=== PATIENT | male | born 1960 | race Caucasian/White ===

== ENCOUNTER 2020-05-04 05:14 | Inpatient (IN) | payer MEDICAID, OTHER ==
[~2020-05-04] VITALS: Ht 167.6 cm; Wt 72.3 kg
[2020-05-04] MEDS ORDERED: ACETAMINOPHEN 650MG SUPP PR STA (06:43)
[2020-05-04] MEDS ORDERED: CEFTRIAXONE 1 G PREMIX 50 ML IV ONE (06:45)
[2020-05-04 07:06] LABS: BASOPHILS % 0.2 % (0.0-2.0); EOSINOPHILS % 0.3 % (0.0-5.0); LYMPHOCYTES % 7.4 % (20.0-50.0); MEAN CORPUSCULAR HEMOGLOBIN 29.7 pg (28.0-32.0); MEAN PLATELET VOLUME 7.8 fl (7.4-10.4); MONOCYTES % 6.1 % (2.0-8.0); PLATELET 402 x1000/uL (130-400); RED BLOOD CELL COUNT 5.06 mill/uL (4.7-6.1)
[2020-05-04 07:11] LABS: CHLORIDE 93 mEq/L (98-107)
[2020-05-04 08:01] LABS: PROTHROMBIN TIME 10.6 sec (9.6-11.0)
[2020-05-04] MEDS ORDERED: SODIUM CHLORIDE 0.9% 1,000 ML IV ONE (10:45)
[2020-05-04] MEDS ORDERED: CLONIDINE 0.1MG TABLET PO PRN (12:30)
[2020-05-04] MEDS ORDERED: DOCUSATE SODIUM 100MG CAPSULE PO PRN (12:30)
[2020-05-04] MEDS ORDERED: DEXTROSE 50% WATER 50ML SYRINGE IV PRN (12:30)
[2020-05-04] MEDS ORDERED: ZOLPIDEM TARTRATE 5MG TABLET PO PRN (12:30)
[2020-05-04] MEDS ORDERED: GUAIFENESIN 200MG/10ML SUGAR FREE UDC PO PRN (12:30)
[2020-05-04] MEDS ORDERED: ACETAMINOPHEN 325MG TABLET PO PRN ×2 (12:30)
[2020-05-04] MEDS ORDERED: MAGNESIUM/ALUMINUM HYDROXIDE/SIMETHICONE 30ML UDC PO PRN (12:30)
[2020-05-04] MEDS ORDERED: NITROGLYCERIN 0.4MG TABLET SL SL PRN (12:30)
[2020-05-04] MEDS ORDERED: ONDANSETRON HCL 4MG/2ML INJ IV PRN (12:30)
[2020-05-04] MEDS ORDERED: ALBUTEROL 6.7GM HFA INHALER ORI PRN (12:30)
[2020-05-04] MEDS ORDERED: KETOROLAC 15MG/ML VIAL IV PRN (12:30)
[2020-05-04] MEDS ORDERED: ENOXAPARIN 40MG/0.4ML SYR SUBCUT SCH (14:00)
[2020-05-04] MEDS: BLOOD SUGAR DIAGNOSTIC STRIP TEST SCH ×3 (14:29→21:00)
[2020-05-04 14:57] LABS: FOLIC ACID (FOLATE) SERUM 16.8 ng/mL (>5.38)
[2020-05-04] MEDS: INSULIN LISPRO 100 UNITS/ML SUBCUT SCH ×5 (14:59→23:01)
[2020-05-04] MEDS: AZITHROMYCIN 500 MG in DEXT 5% WATER 250 ML IV SCH (15:33)
[2020-05-04] MEDS: DEXAMETHASONE 10 MG/ML VIAL IV SCH (15:33)
[2020-05-04 16:11] LABS: CREATINE KINASE 37 IU/L (39-308)
[2020-05-04 16:13] LABS: CREATINE KINASE MB FRACTION < 1.0 ng/mL (0.5-3.6)
[2020-05-04] MEDS: DILTIAZEM HCL 60MG TABLET PO SCH (19:25)
[2020-05-04] MEDS ORDERED: INSULIN GLARGINE UD 100 UNITS/ML SYR SUBCUT SCH (22:00)
[2020-05-04] MEDS: FAMOTIDINE 20MG TABLET PO SCH (22:29)
[2020-05-04] MEDS: GUAIFENESIN/DM 600MG/30MG ER TAB 12HR PO SCH (22:29)
[2020-05-04 23:18] LABS: CREATINE KINASE 35 IU/L (39-308); CREATINE KINASE MB FRACTION < 1.0 ng/mL (0.5-3.6)
[2020-05-04] MEDS: ASCORBIC ACID 500 MG TABLET PO SCH (23:39)
[2020-05-05 06:43] LABS: CHLORIDE 98 mEq/L (98-107)
[2020-05-05 06:45] LABS: HEMATOCRIT. 40.5 % (42.0-52.0); HEMOGLOBIN. 14.1 g/dL (14.0-18.0); MEAN CORPUSCULAR VOLUME 86.1 fL (80.0-94.0); MEAN PLATELET VOLUME 7.5 fl (7.4-10.4); PLATELET 455 x1000/uL (130-400); RED CELL DISTRIBUTION WIDTH 12.8 % (11.6-14.6)
[2020-05-05 06:56] LABS: PHOSPHORUS 2.7 mg/dL (2.5-4.9)
[2020-05-05 07:50] LABS: PLATELET ESTIMATE NORMAL
[2020-05-05] MEDS: INSULIN LISPRO 100 UNITS/ML SUBCUT SCH ×8 (07:50→22:47)
[2020-05-05] MEDS ORDERED: CEFTRIAXONE 1 G PREMIX 50 ML IV SCH (09:00)
[2020-05-05] MEDS: BLOOD SUGAR DIAGNOSTIC STRIP TEST SCH ×4 (09:00→21:00)
[2020-05-05] MEDS: ENOXAPARIN 40MG/0.4ML SYR SUBCUT SCH (09:00)
[2020-05-05] MEDS: DILTIAZEM HCL 60MG TABLET PO SCH ×4 (12:00→23:53)
[2020-05-05] MEDS: DEXAMETHASONE 10 MG/ML VIAL IV SCH (12:02)
[2020-05-05] MEDS: ASPIRIN 325MG EC TABLET PO SCH (12:03)
[2020-05-05] MEDS: GUAIFENESIN/DM 600MG/30MG ER TAB 12HR PO SCH ×2 (12:03→21:43)
[2020-05-05] MEDS: FAMOTIDINE 20MG TABLET PO SCH ×2 (12:03→21:43)
[2020-05-05 12:28] VITALS: BP_SYST 135; BP_SYST 138; BP_DIAS 63
[2020-05-05] MEDS: ASCORBIC ACID 500 MG TABLET PO SCH ×2 (15:06→21:43)
[2020-05-05] MEDS: ZINC SULFATE 220 MG ( 50 ) CAPSULE PO SCH (15:06)
[2020-05-05] MEDS ORDERED: METF500S7 PO (15:14)
[2020-05-05 16:00] VITALS: BP 124/68
[2020-05-05] MEDS: ALBUTEROL 6.7GM HFA INHALER ORI SCH ×2 (18:11→21:43)
[2020-05-05] MEDS: AZITHROMYCIN 500 MG in DEXT 5% WATER 250 ML IV SCH (18:11)
[2020-05-05 20:00] VITALS: BP 102/42
[2020-05-05 23:41] VITALS: BP 114/55
[2020-05-05] MEDS: INSULIN GLARGINE UD 100 UNITS/ML SYR SUBCUT SCH (23:54)
[2020-05-06] MEDS: ALBUTEROL 6.7GM HFA INHALER ORI SCH ×4 (03:40→21:46)
[2020-05-06 04:00] VITALS: BP 109/49
[2020-05-06] MEDS: DILTIAZEM HCL 60MG TABLET PO SCH ×3 (05:10→18:21)
[2020-05-06] MEDS: BLOOD SUGAR DIAGNOSTIC STRIP TEST SCH ×4 (05:48→21:47)
[2020-05-06 08:00] VITALS: BP 116/72
[2020-05-06] MEDS: ASCORBIC ACID 500 MG TABLET PO SCH ×2 (08:41→21:47)
[2020-05-06] MEDS: ENOXAPARIN 40MG/0.4ML SYR SUBCUT SCH (08:41)
[2020-05-06] MEDS: ZINC SULFATE 220 MG ( 50 ) CAPSULE PO SCH (08:41)
[2020-05-06] MEDS: DEXAMETHASONE 10 MG/ML VIAL IV SCH (08:41)
[2020-05-06] MEDS: ASPIRIN 325MG EC TABLET PO SCH (08:41)
[2020-05-06] MEDS: FAMOTIDINE 20MG TABLET PO SCH ×2 (08:41→21:47)
[2020-05-06] MEDS: INSULIN LISPRO 100 UNITS/ML SUBCUT SCH ×7 (08:43→21:54)
[2020-05-06] MEDS: CEFTRIAXONE 1,000 MG in DEXTROSE 5% WATER 50 ML IV SCH (11:07)
[2020-05-06] MEDS: GUAIFENESIN/DM 600MG/30MG ER TAB 12HR PO SCH ×2 (11:07→21:47)
[2020-05-06] MEDS: AZITHROMYCIN 500 MG in DEXT 5% WATER 250 ML IV SCH (14:57)
[2020-05-06 16:00] VITALS: BP 120/50
[2020-05-06 20:00] VITALS: BP 139/82
[2020-05-06] MEDS: INSULIN GLARGINE UD 100 UNITS/ML SYR SUBCUT SCH (23:18)
[2020-05-07] VITALS: BP 125/59
[2020-05-07] MEDS: DILTIAZEM HCL 60MG TABLET PO SCH ×5 (01:00→23:17)
[2020-05-07] MEDS: ALBUTEROL 6.7GM HFA INHALER ORI SCH ×4 (03:51→20:24)
[2020-05-07 04:00] VITALS: BP 104/56
[2020-05-07] MEDS: INSULIN LISPRO 100 UNITS/ML SUBCUT SCH ×7 (07:02→20:23)
[2020-05-07] MEDS: BLOOD SUGAR DIAGNOSTIC STRIP TEST SCH ×4 (07:02→20:23)
[2020-05-07 08:00] VITALS: BP 123/61
[2020-05-07] MEDS: ENOXAPARIN 40MG/0.4ML SYR SUBCUT SCH (08:54)
[2020-05-07] MEDS: DEXAMETHASONE 10 MG/ML VIAL IV SCH (08:54)
[2020-05-07] MEDS: ZINC SULFATE 220 MG ( 50 ) CAPSULE PO SCH (08:54)
[2020-05-07] MEDS: ASCORBIC ACID 500 MG TABLET PO SCH ×2 (08:54→20:22)
[2020-05-07] MEDS: ASPIRIN 325MG EC TABLET PO SCH (08:54)
[2020-05-07] MEDS: FAMOTIDINE 20MG TABLET PO SCH ×2 (08:54→20:21)
[2020-05-07] MEDS: CEFTRIAXONE 1,000 MG in DEXTROSE 5% WATER 50 ML IV SCH (09:00)
[2020-05-07] MEDS: GUAIFENESIN/DM 600MG/30MG ER TAB 12HR PO SCH ×2 (10:19→20:22)
[2020-05-07 12:00] VITALS: BP 111/64
[2020-05-07] MEDS: AZITHROMYCIN 500 MG in DEXT 5% WATER 250 ML IV SCH (14:37)
[2020-05-07 16:00] VITALS: BP 106/52
[2020-05-07 20:00] VITALS: BP 101/48
[2020-05-07] MEDS: INSULIN GLARGINE UD 100 UNITS/ML SYR SUBCUT SCH (23:16)
[2020-05-08] VITALS: BP 131/60
[2020-05-08] MEDS: ALBUTEROL 6.7GM HFA INHALER ORI SCH ×3 (02:52→16:21)
[2020-05-08 04:00] VITALS: BP 121/54
[2020-05-08] MEDS: DILTIAZEM HCL 60MG TABLET PO SCH ×3 (05:00→17:28)
[2020-05-08] MEDS: BLOOD SUGAR DIAGNOSTIC STRIP TEST SCH ×4 (06:12→20:08)
[2020-05-08] MEDS: INSULIN LISPRO 100 UNITS/ML SUBCUT SCH ×7 (06:12→22:50)
[2020-05-08 08:00] VITALS: BP 109/49
[2020-05-08] MEDS: ENOXAPARIN 40MG/0.4ML SYR SUBCUT SCH (11:45)
[2020-05-08] MEDS: CEFTRIAXONE 1,000 MG in DEXTROSE 5% WATER 50 ML IV SCH (11:45)
[2020-05-08] MEDS: GUAIFENESIN/DM 600MG/30MG ER TAB 12HR PO SCH ×2 (11:46→22:49)
[2020-05-08] MEDS: DEXAMETHASONE 10 MG/ML VIAL IV SCH (11:46)
[2020-05-08] MEDS: ASPIRIN 325MG EC TABLET PO SCH (11:46)
[2020-05-08] MEDS: ZINC SULFATE 220 MG ( 50 ) CAPSULE PO SCH (11:46)
[2020-05-08] MEDS: FAMOTIDINE 20MG TABLET PO SCH ×2 (11:46→22:49)
[2020-05-08] MEDS: ASCORBIC ACID 500 MG TABLET PO SCH ×2 (11:46→22:49)
[2020-05-08 12:00] VITALS: BP 108/54
[2020-05-08 16:00] VITALS: BP 122/58
[2020-05-08] MEDS: AZITHROMYCIN 500 MG in DEXT 5% WATER 250 ML IV SCH (16:07)
[2020-05-08 20:00] VITALS: BP 103/58
[2020-05-08] MEDS: INSULIN GLARGINE UD 100 UNITS/ML SYR SUBCUT SCH (22:51)
[2020-05-09] VITALS: BP 112/62
[2020-05-09] MEDS: DILTIAZEM HCL 60MG TABLET PO SCH ×4 (00:14→17:20)
[2020-05-09 04:00] VITALS: BP 110/56
[2020-05-09] MEDS: BLOOD SUGAR DIAGNOSTIC STRIP TEST SCH ×4 (04:53→21:00)
[2020-05-09] MEDS: ALBUTEROL 6.7GM HFA INHALER ORI SCH ×4 (05:33→21:14)
[2020-05-09] MEDS: INSULIN LISPRO 100 UNITS/ML SUBCUT SCH ×8 (05:37→22:53)
[2020-05-09 08:00] VITALS: BP 94/46
[2020-05-09] MEDS: ENOXAPARIN 40MG/0.4ML SYR SUBCUT SCH (08:27)
[2020-05-09] MEDS: ASCORBIC ACID 500 MG TABLET PO SCH ×2 (08:27→21:13)
[2020-05-09] MEDS: GUAIFENESIN/DM 600MG/30MG ER TAB 12HR PO SCH ×2 (08:27→21:13)
[2020-05-09] MEDS: ZINC SULFATE 220 MG ( 50 ) CAPSULE PO SCH (08:27)
[2020-05-09] MEDS: DEXAMETHASONE 10 MG/ML VIAL IV SCH (08:28)
[2020-05-09] MEDS: ASPIRIN 325MG EC TABLET PO SCH (08:29)
[2020-05-09] MEDS: FAMOTIDINE 20MG TABLET PO SCH ×2 (10:26→21:13)
[2020-05-09] MEDS: CEFTRIAXONE 1,000 MG in DEXTROSE 5% WATER 50 ML IV SCH (10:26)
[2020-05-09 12:00] VITALS: BP 115/57
[2020-05-09 16:00] VITALS: BP 98/43
[2020-05-09 20:00] VITALS: BP 136/58
[2020-05-09] MEDS: INSULIN GLARGINE UD 100 UNITS/ML SYR SUBCUT SCH (22:53)
[2020-05-10] VITALS: BP 110/62
[2020-05-10] MEDS: DILTIAZEM HCL 60MG TABLET PO SCH ×4 (00:59→18:10)
[2020-05-10] MEDS: ALBUTEROL 6.7GM HFA INHALER ORI SCH ×4 (03:03→21:00)
[2020-05-10 04:00] VITALS: BP 113/66
[2020-05-10] MEDS: INSULIN LISPRO 100 UNITS/ML SUBCUT SCH ×7 (06:08→21:00)
[2020-05-10] MEDS: BLOOD SUGAR DIAGNOSTIC STRIP TEST SCH ×4 (06:08→21:00)
[2020-05-10 08:00] VITALS: BP 96/51
[2020-05-10] MEDS: ASPIRIN 325MG EC TABLET PO SCH (08:41)
[2020-05-10] MEDS: FAMOTIDINE 20MG TABLET PO SCH ×2 (08:41→21:00)
[2020-05-10] MEDS: ASCORBIC ACID 500 MG TABLET PO SCH ×2 (08:41→22:43)
[2020-05-10] MEDS: ZINC SULFATE 220 MG ( 50 ) CAPSULE PO SCH (08:41)
[2020-05-10] MEDS: GUAIFENESIN/DM 600MG/30MG ER TAB 12HR PO SCH ×2 (08:41→22:03)
[2020-05-10] MEDS: DEXAMETHASONE 10 MG/ML VIAL IV SCH (08:42)
[2020-05-10] MEDS: ENOXAPARIN 40MG/0.4ML SYR SUBCUT SCH (08:42)
[2020-05-10 16:00] VITALS: BP 117/64
[2020-05-10 20:00] VITALS: BP 125/69
[2020-05-10] MEDS: INSULIN GLARGINE UD 100 UNITS/ML SYR SUBCUT SCH (22:40)
[2020-05-11 00:26] VITALS: BP 120/73
[2020-05-11] MEDS: DILTIAZEM HCL 60MG TABLET PO SCH ×5 (00:44→23:53)
[2020-05-11 04:00] VITALS: BP 122/68
[2020-05-11] MEDS: ALBUTEROL 6.7GM HFA INHALER ORI SCH ×4 (05:52→21:53)
[2020-05-11] MEDS: BLOOD SUGAR DIAGNOSTIC STRIP TEST SCH ×4 (07:10→21:57)
[2020-05-11] MEDS: INSULIN LISPRO 100 UNITS/ML SUBCUT SCH ×7 (07:10→21:52)
[2020-05-11 08:00] VITALS: BP 106/56
[2020-05-11] MEDS: GUAIFENESIN/DM 600MG/30MG ER TAB 12HR PO SCH ×2 (09:42→21:51)
[2020-05-11] MEDS: ZINC SULFATE 220 MG ( 50 ) CAPSULE PO SCH (09:42)
[2020-05-11] MEDS: DEXAMETHASONE 10 MG/ML VIAL IV SCH (09:42)
[2020-05-11] MEDS: ASCORBIC ACID 500 MG TABLET PO SCH ×2 (09:42→21:51)
[2020-05-11] MEDS: ASPIRIN 325MG EC TABLET PO SCH (09:42)
[2020-05-11] MEDS: ENOXAPARIN 40MG/0.4ML SYR SUBCUT SCH (09:42)
[2020-05-11] MEDS: FAMOTIDINE 20MG TABLET PO SCH ×2 (09:42→21:51)
[2020-05-11 11:55] VITALS: BP 121/67
[2020-05-11 15:05] VITALS: BP 93/55
[2020-05-11 20:00] VITALS: BP 107/47
[2020-05-11] MEDS: INSULIN GLARGINE UD 100 UNITS/ML SYR SUBCUT SCH (21:52)
[2020-05-12] VITALS: BP 109/57
[2020-05-12] MEDS: ALBUTEROL 6.7GM HFA INHALER ORI SCH ×4 (03:00→21:57)
[2020-05-12 04:00] VITALS: BP 155/64
[2020-05-12] MEDS: DILTIAZEM HCL 60MG TABLET PO SCH ×4 (05:35→23:26)
[2020-05-12] MEDS: BLOOD SUGAR DIAGNOSTIC STRIP TEST SCH ×4 (07:00→21:57)
[2020-05-12] MEDS: INSULIN LISPRO 100 UNITS/ML SUBCUT SCH ×7 (07:00→22:00)
[2020-05-12 08:00] VITALS: BP 95/62
[2020-05-12] MEDS: ASCORBIC ACID 500 MG TABLET PO SCH ×2 (09:54→21:57)
[2020-05-12] MEDS: ENOXAPARIN 40MG/0.4ML SYR SUBCUT SCH (09:54)
[2020-05-12] MEDS: DEXAMETHASONE 10 MG/ML VIAL IV SCH (09:54)
[2020-05-12] MEDS: GUAIFENESIN/DM 600MG/30MG ER TAB 12HR PO SCH ×2 (09:54→21:57)
[2020-05-12] MEDS: ZINC SULFATE 220 MG ( 50 ) CAPSULE PO SCH (09:55)
[2020-05-12] MEDS: ASPIRIN 325MG EC TABLET PO SCH (09:55)
[2020-05-12] MEDS: FAMOTIDINE 20MG TABLET PO SCH ×2 (09:55→21:57)
[2020-05-12 12:00] VITALS: BP 117/66
[2020-05-12 16:00] VITALS: BP 109/51
[2020-05-12 20:00] VITALS: BP 112/63
[2020-05-12] MEDS: INSULIN GLARGINE UD 100 UNITS/ML SYR SUBCUT SCH (21:59)
[2020-05-13] VITALS: BP 95/53
[2020-05-13] MEDS: ALBUTEROL 6.7GM HFA INHALER ORI SCH ×4 (03:44→21:32)
[2020-05-13 04:00] VITALS: BP 114/70
[2020-05-13] MEDS: DILTIAZEM HCL 60MG TABLET PO SCH ×3 (05:21→17:33)
[2020-05-13] MEDS: BLOOD SUGAR DIAGNOSTIC STRIP TEST SCH ×4 (06:26→21:29)
[2020-05-13] MEDS: INSULIN LISPRO 100 UNITS/ML SUBCUT SCH ×7 (06:26→21:31)
[2020-05-13 07:15] LABS: HEMATOCRIT. 39.1 % (42.0-52.0); HEMOGLOBIN. 13.3 g/dL (14.0-18.0); MEAN CORPUSCULAR HEMOGLOBIN 29.4 pg (28.0-32.0); MEAN CORPUSCULAR VOLUME 86.5 fL (80.0-94.0); MEAN PLATELET VOLUME 7.4 fl (7.4-10.4); PLATELET 352 x1000/uL (130-400); RED BLOOD CELL COUNT 4.52 mill/uL (4.7-6.1)
[2020-05-13 07:38] LABS: CHLORIDE 98 mEq/L (98-107)
[2020-05-13 08:00] VITALS: BP 106/67
[2020-05-13] MEDS: ZINC SULFATE 220 MG ( 50 ) CAPSULE PO SCH (08:51)
[2020-05-13] MEDS: ASPIRIN 325MG EC TABLET PO SCH (08:51)
[2020-05-13] MEDS: FAMOTIDINE 20MG TABLET PO SCH ×2 (08:51→21:29)
[2020-05-13] MEDS: DEXAMETHASONE 10 MG/ML VIAL IV SCH (08:51)
[2020-05-13] MEDS: ASCORBIC ACID 500 MG TABLET PO SCH ×2 (08:51→21:29)
[2020-05-13] MEDS: ENOXAPARIN 40MG/0.4ML SYR SUBCUT SCH (08:52)
[2020-05-13] MEDS: GUAIFENESIN/DM 600MG/30MG ER TAB 12HR PO SCH ×2 (11:37→21:29)
[2020-05-13 12:00] VITALS: BP 121/65
[2020-05-13 14:10] LABS: PLATELET ESTIMATE NORMAL
[2020-05-13 16:00] VITALS: BP 99/50
[2020-05-13 20:00] VITALS: BP 102/58
[2020-05-13] MEDS: INSULIN GLARGINE UD 100 UNITS/ML SYR SUBCUT SCH (21:31)
[2020-05-14] VITALS: BP 113/73
[2020-05-14] MEDS: DILTIAZEM HCL 60MG TABLET PO SCH ×5 (00:04→23:40)
[2020-05-14] MEDS: ALBUTEROL 6.7GM HFA INHALER ORI SCH ×4 (02:49→21:20)
[2020-05-14 04:00] VITALS: BP 108/59
[2020-05-14] MEDS: BLOOD SUGAR DIAGNOSTIC STRIP TEST SCH ×4 (06:36→21:19)
[2020-05-14] MEDS: INSULIN LISPRO 100 UNITS/ML SUBCUT SCH ×7 (06:36→21:19)
[2020-05-14 08:00] VITALS: BP 113/65
[2020-05-14] MEDS: ENOXAPARIN 40MG/0.4ML SYR SUBCUT SCH (09:30)
[2020-05-14] MEDS: ASPIRIN 325MG EC TABLET PO SCH (09:30)
[2020-05-14] MEDS: ASCORBIC ACID 500 MG TABLET PO SCH ×2 (09:30→21:18)
[2020-05-14] MEDS: GUAIFENESIN/DM 600MG/30MG ER TAB 12HR PO SCH ×2 (09:30→21:18)
[2020-05-14] MEDS: ZINC SULFATE 220 MG ( 50 ) CAPSULE PO SCH (09:31)
[2020-05-14] MEDS: FAMOTIDINE 20MG TABLET PO SCH ×2 (09:31→21:18)
[2020-05-14 12:00] VITALS: BP 129/67
[2020-05-14 16:00] VITALS: BP 118/64
[2020-05-14 20:00] VITALS: BP 107/49
[2020-05-14] MEDS: INSULIN GLARGINE UD 100 UNITS/ML SYR SUBCUT SCH (22:47)
[2020-05-15] VITALS: BP 117/66
[2020-05-15] MEDS: ALBUTEROL 6.7GM HFA INHALER ORI SCH (02:49)
[2020-05-15 04:00] VITALS: BP 128/72
[2020-05-15] MEDS: DILTIAZEM HCL 60MG TABLET PO SCH ×3 (05:32→17:43)
[2020-05-15] MEDS: BLOOD SUGAR DIAGNOSTIC STRIP TEST SCH ×4 (06:26→21:00)
[2020-05-15] MEDS: INSULIN LISPRO 100 UNITS/ML SUBCUT SCH ×6 (06:26→17:41)
[2020-05-15 07:53] VITALS: BP 110/54
[2020-05-15] MEDS: GUAIFENESIN/DM 600MG/30MG ER TAB 12HR PO SCH (09:38)
[2020-05-15] MEDS: ZINC SULFATE 220 MG ( 50 ) CAPSULE PO SCH (09:38)
[2020-05-15] MEDS: ASPIRIN 325MG EC TABLET PO SCH (09:38)
[2020-05-15] MEDS: ASCORBIC ACID 500 MG TABLET PO SCH (09:38)
[2020-05-15] MEDS: FAMOTIDINE 20MG TABLET PO SCH (09:38)
[2020-05-15] MEDS: ENOXAPARIN 40MG/0.4ML SYR SUBCUT SCH (09:44)
[2020-05-15 12:10] VITALS: BP 126/72
[2020-05-15 16:30] VITALS: BP 120/72
[2020-05-15 20:00] VITALS: BP 125/71
[2020-05-15] MEDS: INSULIN GLARGINE UD 100 UNITS/ML SYR SUBCUT SCH (22:00)
[2020-05-16] VITALS: BP 129/77
[2020-05-16] MEDS: ALBUTEROL 6.7GM HFA INHALER ORI SCH ×5 (01:13→22:07)
[2020-05-16] MEDS: ASCORBIC ACID 500 MG TABLET PO SCH ×3 (01:14→22:03)
[2020-05-16] MEDS: FAMOTIDINE 20MG TABLET PO SCH ×3 (01:14→22:02)
[2020-05-16] MEDS: GUAIFENESIN/DM 600MG/30MG ER TAB 12HR PO SCH ×3 (01:14→22:02)
[2020-05-16] MEDS: DILTIAZEM HCL 60MG TABLET PO SCH ×4 (01:21→18:07)
[2020-05-16] MEDS: INSULIN LISPRO 100 UNITS/ML SUBCUT SCH ×8 (01:25→22:04)
[2020-05-16 04:00] VITALS: BP 134/80
[2020-05-16] MEDS: BLOOD SUGAR DIAGNOSTIC STRIP TEST SCH ×4 (06:21→21:00)
[2020-05-16] MEDS: ENOXAPARIN 40MG/0.4ML SYR SUBCUT SCH ×2 (09:29→22:03)
[2020-05-16] MEDS: ASPIRIN 325MG EC TABLET PO SCH (09:29)
[2020-05-16] MEDS: ZINC SULFATE 220 MG ( 50 ) CAPSULE PO SCH (09:29)
[2020-05-16 12:00] VITALS: BP 126/78
[2020-05-16 16:00] VITALS: BP 119/69
[2020-05-16 20:00] VITALS: BP 108/60
[2020-05-16] MEDS: INSULIN GLARGINE UD 100 UNITS/ML SYR SUBCUT SCH (22:05)
[2020-05-17] VITALS: BP 116/70
[2020-05-17] MEDS: DILTIAZEM HCL 60MG TABLET PO SCH ×4 (01:31→17:23)
[2020-05-17] MEDS: ALBUTEROL 6.7GM HFA INHALER ORI SCH ×4 (03:00→21:57)
[2020-05-17 04:00] VITALS: BP_SYST 116; BP_SYST 128; BP_DIAS 70; BP_DIAS 78
[2020-05-17] MEDS: BLOOD SUGAR DIAGNOSTIC STRIP TEST SCH ×4 (04:42→21:00)
[2020-05-17] MEDS: INSULIN LISPRO 100 UNITS/ML SUBCUT SCH ×8 (05:20→21:55)
[2020-05-17 08:00] VITALS: BP 129/76
[2020-05-17] MEDS: ENOXAPARIN 40MG/0.4ML SYR SUBCUT SCH ×2 (09:20→21:55)
[2020-05-17] MEDS: ZINC SULFATE 220 MG ( 50 ) CAPSULE PO SCH (09:20)
[2020-05-17] MEDS: ASCORBIC ACID 500 MG TABLET PO SCH ×2 (09:21→21:55)
[2020-05-17] MEDS: ASPIRIN 325MG EC TABLET PO SCH (09:21)
[2020-05-17] MEDS: FAMOTIDINE 20MG TABLET PO SCH ×2 (09:33→21:55)
[2020-05-17] MEDS: GUAIFENESIN/DM 600MG/30MG ER TAB 12HR PO SCH ×2 (09:33→21:55)
[2020-05-17 12:00] VITALS: BP 120/73
[2020-05-17 16:00] VITALS: BP 123/75
[2020-05-17 20:00] VITALS: BP_SYST 101; BP_SYST 125; BP_DIAS 66; BP_DIAS 94
[2020-05-17] MEDS: INSULIN GLARGINE UD 100 UNITS/ML SYR SUBCUT SCH (21:56)
[2020-05-18] VITALS: BP 118/71
[2020-05-18 04:00] VITALS: BP 121/77
[2020-05-18] MEDS: BLOOD SUGAR DIAGNOSTIC STRIP TEST SCH ×4 (04:56→20:40)
[2020-05-18] MEDS: DILTIAZEM HCL 60MG TABLET PO SCH ×4 (05:11→17:15)
[2020-05-18] MEDS: ALBUTEROL 6.7GM HFA INHALER ORI SCH ×4 (05:12→20:27)
[2020-05-18] MEDS: INSULIN LISPRO 100 UNITS/ML SUBCUT SCH ×7 (06:38→20:40)
[2020-05-18 08:06] VITALS: BP 127/71
[2020-05-18] MEDS: GUAIFENESIN/DM 600MG/30MG ER TAB 12HR PO SCH ×2 (09:29→20:26)
[2020-05-18] MEDS: ASPIRIN 325MG EC TABLET PO SCH (09:29)
[2020-05-18] MEDS: ZINC SULFATE 220 MG ( 50 ) CAPSULE PO SCH (09:29)
[2020-05-18] MEDS: ASCORBIC ACID 500 MG TABLET PO SCH ×2 (09:29→20:26)
[2020-05-18] MEDS: FAMOTIDINE 20MG TABLET PO SCH ×2 (09:30→20:26)
[2020-05-18] MEDS: ENOXAPARIN 40MG/0.4ML SYR SUBCUT SCH ×2 (09:30→20:27)
[2020-05-18 15:17] VITALS: BP 128/73
[2020-05-18 20:00] VITALS: BP 117/75
[2020-05-18] MEDS: INSULIN GLARGINE UD 100 UNITS/ML SYR SUBCUT SCH (21:57)
[2020-05-19] VITALS: BP 121/74
[2020-05-19] MEDS: DILTIAZEM HCL 60MG TABLET PO SCH ×5 (00:31→23:38)
[2020-05-19] MEDS: ALBUTEROL 6.7GM HFA INHALER ORI SCH ×4 (02:19→21:00)
[2020-05-19 04:00] VITALS: BP 124/74
[2020-05-19] MEDS: BLOOD SUGAR DIAGNOSTIC STRIP TEST SCH ×4 (06:09→20:25)
[2020-05-19] MEDS: INSULIN LISPRO 100 UNITS/ML SUBCUT SCH ×7 (06:11→21:24)
[2020-05-19 07:53] VITALS: BP 134/67
[2020-05-19] MEDS: ASCORBIC ACID 500 MG TABLET PO SCH ×2 (09:12→20:24)
[2020-05-19] MEDS: GUAIFENESIN/DM 600MG/30MG ER TAB 12HR PO SCH ×2 (09:12→20:24)
[2020-05-19] MEDS: ASPIRIN 325MG EC TABLET PO SCH (09:12)
[2020-05-19] MEDS: FAMOTIDINE 20MG TABLET PO SCH ×2 (09:12→20:24)
[2020-05-19] MEDS: ZINC SULFATE 220 MG ( 50 ) CAPSULE PO SCH (09:12)
[2020-05-19] MEDS: ENOXAPARIN 40MG/0.4ML SYR SUBCUT SCH ×2 (09:13→20:25)
[2020-05-19 12:00] VITALS: BP 150/77
[2020-05-19 16:00] VITALS: BP 123/69
[2020-05-19 20:00] VITALS: BP 127/76
[2020-05-19] MEDS: INSULIN GLARGINE UD 100 UNITS/ML SYR SUBCUT SCH (21:25)
[2020-05-20] VITALS: BP 137/81
[2020-05-20 04:00] VITALS: BP 127/76
[2020-05-20] MEDS: DILTIAZEM HCL 60MG TABLET PO SCH ×3 (05:59→17:45)
[2020-05-20] MEDS: ALBUTEROL 6.7GM HFA INHALER ORI SCH ×4 (06:00→20:25)
[2020-05-20] MEDS: BLOOD SUGAR DIAGNOSTIC STRIP TEST SCH ×4 (06:32→20:34)
[2020-05-20] MEDS: INSULIN LISPRO 100 UNITS/ML SUBCUT SCH ×7 (06:33→20:35)
[2020-05-20 08:15] VITALS: BP 103/70
[2020-05-20] MEDS: GUAIFENESIN/DM 600MG/30MG ER TAB 12HR PO SCH ×2 (08:41→20:26)
[2020-05-20] MEDS: FAMOTIDINE 20MG TABLET PO SCH ×2 (08:41→20:26)
[2020-05-20] MEDS: ZINC SULFATE 220 MG ( 50 ) CAPSULE PO SCH (08:41)
[2020-05-20] MEDS: ASPIRIN 325MG EC TABLET PO SCH (08:41)
[2020-05-20] MEDS: ASCORBIC ACID 500 MG TABLET PO SCH ×2 (08:41→20:26)
[2020-05-20] MEDS: ENOXAPARIN 40MG/0.4ML SYR SUBCUT SCH ×2 (08:42→20:26)
[2020-05-20 12:00] VITALS: BP 119/76
[2020-05-20 16:00] VITALS: BP 145/72
[2020-05-20 20:00] VITALS: BP 127/70
[2020-05-20] MEDS: INSULIN GLARGINE UD 100 UNITS/ML SYR SUBCUT SCH (21:45)
[2020-05-21] VITALS (7 sets, daily range): BP systolic 111–140; BP diastolic 68–103
[2020-05-21] MEDS: DILTIAZEM HCL 60MG TABLET PO SCH ×4 (02:12→17:12)
[2020-05-21] MEDS: ALBUTEROL 6.7GM HFA INHALER ORI SCH ×4 (02:15→20:26)
[2020-05-21] MEDS: BLOOD SUGAR DIAGNOSTIC STRIP TEST SCH ×4 (06:31→20:26)
[2020-05-21] MEDS: INSULIN LISPRO 100 UNITS/ML SUBCUT SCH ×7 (07:10→21:00)
[2020-05-21 07:48] LABS: HEMATOCRIT 37.6 % (42.0-52.0); HEMOGLOBIN 12.7 g/dL (14.0-18.0); MEAN CORPUSCULAR HEMOGLOBIN 29.6 pg (28.0-32.0); MEAN CORPUSCULAR VOLUME 87.4 fL (80.0-94.0); PLATELET 552 x1000/uL (130-400)
[2020-05-21] MEDS: ENOXAPARIN 40MG/0.4ML SYR SUBCUT SCH ×2 (08:40→20:24)
[2020-05-21] MEDS: GUAIFENESIN/DM 600MG/30MG ER TAB 12HR PO SCH ×2 (08:41→20:24)
[2020-05-21] MEDS: ASPIRIN 325MG EC TABLET PO SCH (08:41)
[2020-05-21] MEDS: ZINC SULFATE 220 MG ( 50 ) CAPSULE PO SCH (08:41)
[2020-05-21] MEDS: FAMOTIDINE 20MG TABLET PO SCH ×2 (08:41→20:25)
[2020-05-21] MEDS: ASCORBIC ACID 500 MG TABLET PO SCH ×2 (08:41→20:25)
[2020-05-21 10:02] LABS: CHLORIDE 97 mEq/L (98-107)
[2020-05-21] MEDS: INSULIN GLARGINE UD 100 UNITS/ML SYR SUBCUT SCH (23:29)
[2020-05-22] VITALS: BP 126/77
[2020-05-22] MEDS: DILTIAZEM HCL 60MG TABLET PO SCH ×4 (00:40→18:15)
[2020-05-22] MEDS: ALBUTEROL 6.7GM HFA INHALER ORI SCH ×4 (02:55→21:47)
[2020-05-22 04:00] VITALS: BP 146/96
[2020-05-22] MEDS: INSULIN LISPRO 100 UNITS/ML SUBCUT SCH ×7 (06:47→21:56)
[2020-05-22] MEDS: BLOOD SUGAR DIAGNOSTIC STRIP TEST SCH ×4 (06:47→19:45)
[2020-05-22] MEDS: ASCORBIC ACID 500 MG TABLET PO SCH ×2 (08:44→21:47)
[2020-05-22] MEDS: FAMOTIDINE 20MG TABLET PO SCH ×2 (08:44→21:48)
[2020-05-22] MEDS: ZINC SULFATE 220 MG ( 50 ) CAPSULE PO SCH (08:44)
[2020-05-22] MEDS: GUAIFENESIN/DM 600MG/30MG ER TAB 12HR PO SCH ×2 (08:44→21:47)
[2020-05-22] MEDS: ASPIRIN 325MG EC TABLET PO SCH (08:44)
[2020-05-22] MEDS: ENOXAPARIN 40MG/0.4ML SYR SUBCUT SCH ×2 (08:45→21:48)
[2020-05-22 12:00] VITALS: BP 143/88
[2020-05-22 16:00] VITALS: BP 122/64
[2020-05-22 20:00] VITALS: BP 121/76
[2020-05-22] MEDS: INSULIN GLARGINE UD 100 UNITS/ML SYR SUBCUT SCH (21:56)
[2020-05-23] VITALS: BP 118/72
[2020-05-23] MEDS: DILTIAZEM HCL 60MG TABLET PO SCH ×4 (01:22→17:37)
[2020-05-23 04:00] VITALS: BP 120/73
[2020-05-23] MEDS: BLOOD SUGAR DIAGNOSTIC STRIP TEST SCH ×4 (04:57→21:34)
[2020-05-23] MEDS: ALBUTEROL 6.7GM HFA INHALER ORI SCH ×4 (05:13→21:34)
[2020-05-23] MEDS: INSULIN LISPRO 100 UNITS/ML SUBCUT SCH ×7 (06:01→21:32)
[2020-05-23 08:00] VITALS: BP 109/68
[2020-05-23] MEDS: ASPIRIN 325MG EC TABLET PO SCH (09:28)
[2020-05-23] MEDS: FAMOTIDINE 20MG TABLET PO SCH ×2 (09:28→21:22)
[2020-05-23] MEDS: ZINC SULFATE 220 MG ( 50 ) CAPSULE PO SCH (09:28)
[2020-05-23] MEDS: ASCORBIC ACID 500 MG TABLET PO SCH ×2 (09:28→21:22)
[2020-05-23] MEDS: GUAIFENESIN/DM 600MG/30MG ER TAB 12HR PO SCH ×2 (09:28→21:22)
[2020-05-23] MEDS: ENOXAPARIN 40MG/0.4ML SYR SUBCUT SCH ×2 (09:29→21:23)
[2020-05-23 12:00] VITALS: BP 138/82
[2020-05-23 16:00] VITALS: BP 114/72
[2020-05-23 20:00] VITALS: BP 105/62
[2020-05-24] VITALS: BP 122/76
[2020-05-24] MEDS: DILTIAZEM HCL 60MG TABLET PO SCH ×4 (00:26→18:21)
[2020-05-24] MEDS: INSULIN GLARGINE UD 100 UNITS/ML SYR SUBCUT SCH ×2 (00:27→23:01)
[2020-05-24] MEDS: ALBUTEROL 6.7GM HFA INHALER ORI SCH ×4 (03:15→21:09)
[2020-05-24 04:00] VITALS: BP 127/85
[2020-05-24] MEDS: INSULIN LISPRO 100 UNITS/ML SUBCUT SCH ×7 (06:29→21:00)
[2020-05-24] MEDS: BLOOD SUGAR DIAGNOSTIC STRIP TEST SCH ×4 (06:29→21:12)
[2020-05-24 08:41] VITALS: BP 118/76
[2020-05-24] MEDS: ZINC SULFATE 220 MG ( 50 ) CAPSULE PO SCH (09:25)
[2020-05-24] MEDS: ASPIRIN 325MG EC TABLET PO SCH (09:25)
[2020-05-24] MEDS: GUAIFENESIN/DM 600MG/30MG ER TAB 12HR PO SCH ×2 (09:25→21:10)
[2020-05-24] MEDS: ASCORBIC ACID 500 MG TABLET PO SCH ×2 (09:25→21:10)
[2020-05-24] MEDS: FAMOTIDINE 20MG TABLET PO SCH ×2 (09:25→21:10)
[2020-05-24] MEDS: ENOXAPARIN 40MG/0.4ML SYR SUBCUT SCH ×2 (09:26→21:12)
[2020-05-24 11:48] VITALS: BP 110/69
[2020-05-24 16:20] VITALS: BP 122/71
[2020-05-24 20:00] VITALS: BP 115/70
[2020-05-25] VITALS (8 sets, daily range): BP systolic 102–154; BP diastolic 63–83
[2020-05-25] MEDS: ALBUTEROL 6.7GM HFA INHALER ORI SCH ×4 (03:17→21:14)
[2020-05-25] MEDS: DILTIAZEM HCL 60MG TABLET PO SCH ×4 (06:55→18:20)
[2020-05-25] MEDS: INSULIN LISPRO 100 UNITS/ML SUBCUT SCH ×7 (06:55→21:00)
[2020-05-25] MEDS: BLOOD SUGAR DIAGNOSTIC STRIP TEST SCH ×4 (06:55→21:11)
[2020-05-25] MEDS: ASCORBIC ACID 500 MG TABLET PO SCH ×2 (09:14→21:14)
[2020-05-25] MEDS: GUAIFENESIN/DM 600MG/30MG ER TAB 12HR PO SCH ×2 (09:14→21:14)
[2020-05-25] MEDS: ZINC SULFATE 220 MG ( 50 ) CAPSULE PO SCH (09:14)
[2020-05-25] MEDS: FAMOTIDINE 20MG TABLET PO SCH ×2 (09:14→21:14)
[2020-05-25] MEDS: ASPIRIN 325MG EC TABLET PO SCH (09:14)
[2020-05-25] MEDS: ENOXAPARIN 40MG/0.4ML SYR SUBCUT SCH ×2 (09:14→21:14)
[2020-05-26] VITALS: BP 121/79
[2020-05-26] MEDS: DILTIAZEM HCL 60MG TABLET PO SCH ×4 (00:03→18:05)
[2020-05-26] MEDS: INSULIN GLARGINE UD 100 UNITS/ML SYR SUBCUT SCH ×2 (00:04→22:33)
[2020-05-26 04:00] VITALS: BP 126/81
[2020-05-26] MEDS: ALBUTEROL 6.7GM HFA INHALER ORI SCH ×4 (04:18→22:30)
[2020-05-26] MEDS: INSULIN LISPRO 100 UNITS/ML SUBCUT SCH ×7 (07:10→20:37)
[2020-05-26] MEDS: BLOOD SUGAR DIAGNOSTIC STRIP TEST SCH ×4 (07:26→20:37)
[2020-05-26 08:00] VITALS: BP 124/70
[2020-05-26] MEDS: ENOXAPARIN 40MG/0.4ML SYR SUBCUT SCH ×2 (08:35→22:30)
[2020-05-26] MEDS: GUAIFENESIN/DM 600MG/30MG ER TAB 12HR PO SCH ×2 (08:35→22:31)
[2020-05-26] MEDS: ASCORBIC ACID 500 MG TABLET PO SCH ×2 (08:36→22:31)
[2020-05-26] MEDS: ZINC SULFATE 220 MG ( 50 ) CAPSULE PO SCH (08:36)
[2020-05-26] MEDS: FAMOTIDINE 20MG TABLET PO SCH ×2 (08:36→22:31)
[2020-05-26] MEDS: ASPIRIN 325MG EC TABLET PO SCH (08:36)
[2020-05-26 12:00] VITALS: BP 100/73
[2020-05-26 16:00] VITALS: BP 129/77
[2020-05-26 20:00] VITALS: BP 124/70
[2020-05-27] VITALS: BP 112/69
[2020-05-27 04:00] VITALS: BP 124/82
[2020-05-27] MEDS: BLOOD SUGAR DIAGNOSTIC STRIP TEST SCH ×4 (05:33→19:55)
[2020-05-27] MEDS: DILTIAZEM HCL 60MG TABLET PO SCH ×3 (05:54→18:29)
[2020-05-27] MEDS: ALBUTEROL 6.7GM HFA INHALER ORI SCH ×4 (05:54→21:38)
[2020-05-27] MEDS: INSULIN LISPRO 100 UNITS/ML SUBCUT SCH ×7 (05:56→21:43)
[2020-05-27 08:00] VITALS: BP 107/65
[2020-05-27] MEDS: GUAIFENESIN/DM 600MG/30MG ER TAB 12HR PO SCH ×2 (09:14→21:38)
[2020-05-27] MEDS: ZINC SULFATE 220 MG ( 50 ) CAPSULE PO SCH (09:14)
[2020-05-27] MEDS: FAMOTIDINE 20MG TABLET PO SCH ×2 (09:14→21:38)
[2020-05-27] MEDS: ENOXAPARIN 40MG/0.4ML SYR SUBCUT SCH ×2 (09:14→21:37)
[2020-05-27] MEDS: ASCORBIC ACID 500 MG TABLET PO SCH ×2 (09:14→21:38)
[2020-05-27] MEDS: ASPIRIN 325MG EC TABLET PO SCH (09:14)
[2020-05-27 12:00] VITALS: BP 107/65
[2020-05-27 16:00] VITALS: BP 106/67
[2020-05-27 20:00] VITALS: BP 111/68
[2020-05-27] MEDS: INSULIN GLARGINE UD 100 UNITS/ML SYR SUBCUT SCH (21:43)
[2020-05-28] VITALS (7 sets, daily range): BP systolic 110–125; BP diastolic 67–76
[2020-05-28] MEDS: DILTIAZEM HCL 60MG TABLET PO SCH ×5 (00:10→23:00)
[2020-05-28] MEDS: BLOOD SUGAR DIAGNOSTIC STRIP TEST SCH ×4 (05:27→20:53)
[2020-05-28] MEDS: ALBUTEROL 6.7GM HFA INHALER ORI SCH ×4 (05:44→20:50)
[2020-05-28] MEDS: INSULIN LISPRO 100 UNITS/ML SUBCUT SCH ×7 (05:47→20:54)
[2020-05-28] MEDS: FAMOTIDINE 20MG TABLET PO SCH ×2 (09:00→20:50)
[2020-05-28] MEDS: ZINC SULFATE 220 MG ( 50 ) CAPSULE PO SCH (09:39)
[2020-05-28] MEDS: ASCORBIC ACID 500 MG TABLET PO SCH ×2 (09:39→20:50)
[2020-05-28] MEDS: ENOXAPARIN 40MG/0.4ML SYR SUBCUT SCH (09:39)
[2020-05-28] MEDS: GUAIFENESIN/DM 600MG/30MG ER TAB 12HR PO SCH ×2 (09:39→20:50)
[2020-05-28] MEDS: ASPIRIN 325MG EC TABLET PO SCH (09:39)
[2020-05-28] MEDS: INSULIN GLARGINE UD 100 UNITS/ML SYR SUBCUT SCH (22:55)
[2020-05-29 00:34] VITALS: BP 126/77
[2020-05-29] MEDS: ALBUTEROL 6.7GM HFA INHALER ORI SCH ×4 (03:54→21:17)
[2020-05-29 04:00] VITALS: BP 109/66
[2020-05-29] MEDS: DILTIAZEM HCL 60MG TABLET PO SCH ×4 (05:09→23:26)
[2020-05-29] MEDS: BLOOD SUGAR DIAGNOSTIC STRIP TEST SCH ×4 (06:31→21:16)
[2020-05-29 07:59] VITALS: BP 118/73
[2020-05-29 08:14] LABS: HEMATOCRIT 39.6 % (42.0-52.0); HEMOGLOBIN 13.5 g/dL (14.0-18.0); MEAN CORPUSCULAR HEMOGLOBIN 29.8 pg (28.0-32.0); MEAN CORPUSCULAR VOLUME 87.6 fL (80.0-94.0); PLATELET 848 x1000/uL (130-400); RED BLOOD CELL COUNT 4.52 mill/uL (4.7-6.1); RED CELL DISTRIBUTION WIDTH 13.6 % (11.6-14.6)
[2020-05-29] MEDS: ASCORBIC ACID 500 MG TABLET PO SCH ×2 (08:14→21:16)
[2020-05-29] MEDS: ASPIRIN 325MG EC TABLET PO SCH (08:14)
[2020-05-29] MEDS: ZINC SULFATE 220 MG ( 50 ) CAPSULE PO SCH (08:14)
[2020-05-29] MEDS: FAMOTIDINE 20MG TABLET PO SCH ×2 (08:14→21:16)
[2020-05-29] MEDS: GUAIFENESIN/DM 600MG/30MG ER TAB 12HR PO SCH ×2 (08:15→21:16)
[2020-05-29] MEDS: ENOXAPARIN 40MG/0.4ML SYR SUBCUT SCH (08:15)
[2020-05-29] MEDS: INSULIN LISPRO 100 UNITS/ML SUBCUT SCH ×7 (08:16→21:00)
[2020-05-29 11:41] LABS: CHLORIDE 96 mEq/L (98-107)
[2020-05-29 11:56] VITALS: BP 113/75
[2020-05-29 16:00] VITALS: BP 105/57
[2020-05-29 20:00] VITALS: BP 129/82
[2020-05-29] MEDS: INSULIN GLARGINE UD 100 UNITS/ML SYR SUBCUT SCH (22:17)
[2020-05-30] VITALS: BP 125/81
[2020-05-30] MEDS: ALBUTEROL 6.7GM HFA INHALER ORI SCH ×4 (03:53→21:45)
[2020-05-30 04:00] VITALS: BP 123/78
[2020-05-30] MEDS: BLOOD SUGAR DIAGNOSTIC STRIP TEST SCH ×4 (06:28→21:44)
[2020-05-30] MEDS: DILTIAZEM HCL 60MG TABLET PO SCH ×3 (06:28→18:03)
[2020-05-30] MEDS: INSULIN LISPRO 100 UNITS/ML SUBCUT SCH ×7 (06:28→21:42)
[2020-05-30 08:00] VITALS: BP 138/83
[2020-05-30] MEDS: ENOXAPARIN 40MG/0.4ML SYR SUBCUT SCH (08:50)
[2020-05-30] MEDS: ASPIRIN 325MG EC TABLET PO SCH (08:51)
[2020-05-30] MEDS: GUAIFENESIN/DM 600MG/30MG ER TAB 12HR PO SCH ×2 (08:51→21:38)
[2020-05-30] MEDS: ASCORBIC ACID 500 MG TABLET PO SCH ×2 (08:51→21:38)
[2020-05-30] MEDS: ZINC SULFATE 220 MG ( 50 ) CAPSULE PO SCH (08:51)
[2020-05-30] MEDS: FAMOTIDINE 20MG TABLET PO SCH ×2 (09:00→21:38)
[2020-05-30 12:00] VITALS: BP 118/75
[2020-05-30 16:00] VITALS: BP 131/80
[2020-05-30 20:00] VITALS: BP 124/73
[2020-05-30] MEDS: INSULIN GLARGINE UD 100 UNITS/ML SYR SUBCUT SCH (21:43)
[2020-05-31] VITALS: BP 131/84
[2020-05-31] MEDS: DILTIAZEM HCL 60MG TABLET PO SCH ×4 (00:43→17:27)
[2020-05-31 04:00] VITALS: BP 113/62
[2020-05-31] MEDS: ALBUTEROL 6.7GM HFA INHALER ORI SCH ×4 (04:27→21:06)
[2020-05-31] MEDS: BLOOD SUGAR DIAGNOSTIC STRIP TEST SCH ×4 (05:35→21:07)
[2020-05-31] MEDS: INSULIN LISPRO 100 UNITS/ML SUBCUT SCH ×7 (05:35→21:07)
[2020-05-31 08:00] VITALS: BP 107/70
[2020-05-31] MEDS: ENOXAPARIN 40MG/0.4ML SYR SUBCUT SCH (08:40)
[2020-05-31] MEDS: ASPIRIN 325MG EC TABLET PO SCH (08:41)
[2020-05-31] MEDS: ASCORBIC ACID 500 MG TABLET PO SCH ×2 (08:41→21:06)
[2020-05-31] MEDS: ZINC SULFATE 220 MG ( 50 ) CAPSULE PO SCH (08:41)
[2020-05-31] MEDS: FAMOTIDINE 20MG TABLET PO SCH ×2 (08:41→21:06)
[2020-05-31] MEDS: GUAIFENESIN/DM 600MG/30MG ER TAB 12HR PO SCH ×2 (08:41→21:06)
[2020-05-31 12:00] VITALS: BP 113/73
[2020-05-31 16:00] VITALS: BP 123/74
[2020-06-01] VITALS: BP 113/76
[2020-06-01] MEDS: DILTIAZEM HCL 60MG TABLET PO SCH ×4 (01:25→18:48)
[2020-06-01] MEDS: INSULIN GLARGINE UD 100 UNITS/ML SYR SUBCUT SCH ×2 (01:26→22:00)
[2020-06-01] MEDS: ALBUTEROL 6.7GM HFA INHALER ORI SCH ×2 (03:38→09:32)
[2020-06-01 04:00] VITALS: BP 102/68
[2020-06-01] MEDS: BLOOD SUGAR DIAGNOSTIC STRIP TEST SCH ×2 (06:07→12:10)
[2020-06-01] MEDS: INSULIN LISPRO 100 UNITS/ML SUBCUT SCH ×4 (06:08→13:41)
[2020-06-01 08:00] VITALS: BP 113/79
[2020-06-01] MEDS: FAMOTIDINE 20MG TABLET PO SCH ×2 (09:29→21:57)
[2020-06-01] MEDS: ENOXAPARIN 40MG/0.4ML SYR SUBCUT SCH (09:29)
[2020-06-01] MEDS: ZINC SULFATE 220 MG ( 50 ) CAPSULE PO SCH (09:29)
[2020-06-01] MEDS: GUAIFENESIN/DM 600MG/30MG ER TAB 12HR PO SCH ×2 (09:29→21:57)
[2020-06-01] MEDS: ASPIRIN 325MG EC TABLET PO SCH (09:29)
[2020-06-01] MEDS: ASCORBIC ACID 500 MG TABLET PO SCH ×2 (09:30→21:57)
[2020-06-01 12:00] VITALS: BP 122/84
[2020-06-01 16:00] VITALS: BP 118/81
[2020-06-01 20:00] VITALS: BP 110/69
[2020-06-02] VITALS: BP 108/71
[2020-06-02 04:00] VITALS: BP 122/74
[2020-06-02 08:00] VITALS: BP 117/78
[2020-06-02] MEDS: ZINC SULFATE 220 MG ( 50 ) CAPSULE PO SCH (09:37)
[2020-06-02] MEDS: ASPIRIN 325MG EC TABLET PO SCH (09:38)
[2020-06-02 12:00] VITALS: BP 111/80
[2020-06-02] MEDS: ENOXAPARIN 40MG/0.4ML SYR SUBCUT SCH (13:47)
[2020-06-02 16:00] VITALS: BP 120/69
[2020-06-02] MEDS ORDERED: DEXTROSE 50% WATER 50ML SYRINGE IV PRN (16:00)
[2020-06-02] MEDS ORDERED: CLONIDINE 0.1MG TABLET PO PRN (16:00)
[2020-06-02] MEDS ORDERED: ALBUTEROL 6.7GM HFA INHALER ORI PRN (16:00)
[2020-06-02] MEDS: BLOOD SUGAR DIAGNOSTIC STRIP TEST SCH ×2 (16:40→21:55)
[2020-06-02] MEDS: INSULIN LISPRO 100 UNITS/ML SUBCUT SCH ×2 (18:08→21:00)
[2020-06-02] MEDS: GUAIFENESIN 600MG ER TABLET PO SCH (21:53)
[2020-06-02] MEDS: INSULIN GLARGINE UD 100 UNITS/ML SYR SUBCUT SCH (21:53)
[2020-06-02] MEDS: ASCORBIC ACID 500 MG TABLET PO SCH (21:53)
[2020-06-02] MEDS: FAMOTIDINE 20MG TABLET PO SCH (21:54)
[2020-06-03] VITALS: BP 110/72
[2020-06-03 04:26] VITALS: BP 104/75
[2020-06-03] MEDS: BLOOD SUGAR DIAGNOSTIC STRIP TEST SCH ×4 (06:34→21:00)
[2020-06-03] MEDS: INSULIN LISPRO 100 UNITS/ML SUBCUT SCH ×4 (07:10→22:00)
[2020-06-03 08:00] VITALS: BP 127/85
[2020-06-03] MEDS: ASPIRIN 325MG EC TABLET PO SCH (08:41)
[2020-06-03] MEDS: ASCORBIC ACID 500 MG TABLET PO SCH ×2 (08:41→21:59)
[2020-06-03] MEDS: FAMOTIDINE 20MG TABLET PO SCH ×2 (08:41→21:59)
[2020-06-03] MEDS: GUAIFENESIN 600MG ER TABLET PO SCH ×2 (08:41→22:05)
[2020-06-03] MEDS: ZINC SULFATE 220 MG ( 50 ) CAPSULE PO SCH (08:41)
[2020-06-03] MEDS: ENOXAPARIN 40MG/0.4ML SYR SUBCUT SCH (08:42)
[2020-06-03 12:00] VITALS: BP 120/78
[2020-06-03 16:00] VITALS: BP 110/71
[2020-06-03 20:00] VITALS: BP 115/70
[2020-06-04] VITALS: BP 111/71
[2020-06-04 04:00] VITALS: BP 104/78
[2020-06-04] MEDS: BLOOD SUGAR DIAGNOSTIC STRIP TEST SCH ×4 (06:59→20:43)
[2020-06-04 07:36] LABS: BASOPHILS % 0.9 % (0.0-2.0); EOSINOPHILS % 11.4 % (0.0-5.0); HEMATOCRIT. 38.7 % (42.0-52.0); LYMPHOCYTES % 18.4 % (20.0-50.0); MEAN CORPUSCULAR HEMOGLOBIN 29.4 pg (28.0-32.0); MEAN CORPUSCULAR VOLUME 87.1 fL (80.0-94.0); MEAN PLATELET VOLUME 7.7 fl (7.4-10.4); MONOCYTES % 6.5 % (2.0-8.0); NEUTROPHILS % 62.8 % (40.0-76.0); PLATELET 585 x1000/uL (130-400); RED BLOOD CELL COUNT 4.44 mill/uL (4.7-6.1); RED CELL DISTRIBUTION WIDTH 13.6 % (11.6-14.6)
[2020-06-04 08:00] VITALS: BP 119/73
[2020-06-04] MEDS: FAMOTIDINE 20MG TABLET PO SCH ×2 (08:19→20:42)
[2020-06-04] MEDS: GUAIFENESIN 600MG ER TABLET PO SCH ×2 (08:19→20:42)
[2020-06-04] MEDS: ASPIRIN 325MG EC TABLET PO SCH (08:19)
[2020-06-04] MEDS: ZINC SULFATE 220 MG ( 50 ) CAPSULE PO SCH (08:19)
[2020-06-04] MEDS: INSULIN LISPRO 100 UNITS/ML SUBCUT SCH ×4 (08:20→20:41)
[2020-06-04] MEDS: ENOXAPARIN 40MG/0.4ML SYR SUBCUT SCH (08:20)
[2020-06-04 08:25] LABS: CHLORIDE 98 mEq/L (98-107)
[2020-06-04 12:00] VITALS: BP 106/69
[2020-06-04] MEDS: ASCORBIC ACID 500 MG TABLET PO SCH ×2 (12:20→20:42)
[2020-06-04 16:00] VITALS: BP 111/75
[2020-06-04 20:00] VITALS: BP 111/70
[2020-06-04] MEDS: ACETAMINOPHEN 325MG TABLET PO PRN (20:42)
[2020-06-05] VITALS: BP 105/74
[2020-06-05 04:00] VITALS: BP 110/73
[2020-06-05] MEDS: BLOOD SUGAR DIAGNOSTIC STRIP TEST SCH ×4 (06:28→20:27)
[2020-06-05 08:00] VITALS: BP 117/77
[2020-06-05] MEDS: FAMOTIDINE 20MG TABLET PO SCH ×2 (09:37→20:26)
[2020-06-05] MEDS: ZINC SULFATE 220 MG ( 50 ) CAPSULE PO SCH (09:37)
[2020-06-05] MEDS: ASPIRIN 325MG EC TABLET PO SCH (09:37)
[2020-06-05] MEDS: ASCORBIC ACID 500 MG TABLET PO SCH ×2 (09:37→20:26)
[2020-06-05] MEDS: GUAIFENESIN 600MG ER TABLET PO SCH ×2 (09:37→20:26)
[2020-06-05] MEDS: INSULIN LISPRO 100 UNITS/ML SUBCUT SCH ×4 (09:38→21:14)
[2020-06-05] MEDS: ENOXAPARIN 40MG/0.4ML SYR SUBCUT SCH (09:38)
[2020-06-05 12:00] VITALS: BP 97/66
[2020-06-05 16:00] VITALS: BP 114/73
[2020-06-05 20:00] VITALS: BP 109/71
[2020-06-06] VITALS: BP 120/67
[2020-06-06 04:00] VITALS: BP 99/65
[2020-06-06] MEDS: BLOOD SUGAR DIAGNOSTIC STRIP TEST SCH ×4 (06:40→21:16)
[2020-06-06 08:00] VITALS: BP 127/70
[2020-06-06] MEDS: ZINC SULFATE 220 MG ( 50 ) CAPSULE PO SCH (10:32)
[2020-06-06] MEDS: GUAIFENESIN 600MG ER TABLET PO SCH ×2 (10:33→21:16)
[2020-06-06] MEDS: ENOXAPARIN 40MG/0.4ML SYR SUBCUT SCH (10:33)
[2020-06-06] MEDS: FAMOTIDINE 20MG TABLET PO SCH ×2 (10:33→21:16)
[2020-06-06] MEDS: ASPIRIN 325MG EC TABLET PO SCH (10:34)
[2020-06-06] MEDS: INSULIN LISPRO 100 UNITS/ML SUBCUT SCH ×4 (10:38→21:13)
[2020-06-06 12:00] VITALS: BP 118/63
[2020-06-06] MEDS: ASCORBIC ACID 500 MG TABLET PO SCH ×2 (13:54→21:16)
[2020-06-06 16:00] VITALS: BP 114/64
[2020-06-06 20:00] VITALS: BP 120/76
[2020-06-06] MEDS: ACETAMINOPHEN 325MG TABLET PO PRN (21:19)
[2020-06-07] VITALS: BP 112/73
[2020-06-07 04:00] VITALS: BP 119/75
[2020-06-07] MEDS: BLOOD SUGAR DIAGNOSTIC STRIP TEST SCH ×2 (05:45→20:44)
[2020-06-07] MEDS: INSULIN LISPRO 100 UNITS/ML SUBCUT SCH ×4 (05:54→20:48)
[2020-06-07 08:00] VITALS: BP 106/64
[2020-06-07] MEDS: ASCORBIC ACID 500 MG TABLET PO SCH ×2 (10:02→20:45)
[2020-06-07] MEDS: FAMOTIDINE 20MG TABLET PO SCH ×2 (10:02→20:45)
[2020-06-07] MEDS: ENOXAPARIN 40MG/0.4ML SYR SUBCUT SCH (10:02)
[2020-06-07] MEDS: GUAIFENESIN 600MG ER TABLET PO SCH ×2 (10:03→20:48)
[2020-06-07] MEDS: ASPIRIN 325MG EC TABLET PO SCH (10:03)
[2020-06-07] MEDS: ZINC SULFATE 220 MG ( 50 ) CAPSULE PO SCH (10:03)
[2020-06-07 12:00] VITALS: BP 113/66
[2020-06-07 16:00] VITALS: BP 108/59
[2020-06-07 20:00] VITALS: BP 114/73
[2020-06-07] MEDS: ACETAMINOPHEN 325MG TABLET PO PRN (20:45)
[2020-06-08] VITALS: BP 112/76
[2020-06-08 04:00] VITALS: BP 119/75
[2020-06-08] MEDS: BLOOD SUGAR DIAGNOSTIC STRIP TEST SCH ×3 (06:45→21:00)
[2020-06-08 08:00] VITALS: BP 111/73
[2020-06-08] MEDS: GUAIFENESIN 600MG ER TABLET PO SCH ×2 (08:30→22:32)
[2020-06-08] MEDS: ZINC SULFATE 220 MG ( 50 ) CAPSULE PO SCH (08:30)
[2020-06-08] MEDS: ASPIRIN 325MG EC TABLET PO SCH (08:30)
[2020-06-08] MEDS: FAMOTIDINE 20MG TABLET PO SCH ×2 (08:30→22:32)
[2020-06-08] MEDS: ASCORBIC ACID 500 MG TABLET PO SCH ×2 (08:30→22:32)
[2020-06-08] MEDS: INSULIN LISPRO 100 UNITS/ML SUBCUT SCH ×4 (08:31→23:06)
[2020-06-08] MEDS: ENOXAPARIN 40MG/0.4ML SYR SUBCUT SCH (08:31)
[2020-06-08 16:00] VITALS: BP 124/80
[2020-06-08 20:00] VITALS: BP 119/72
[2020-06-09] VITALS: BP 121/68
[2020-06-09 04:00] VITALS: BP 110/76
[2020-06-09] MEDS: BLOOD SUGAR DIAGNOSTIC STRIP TEST SCH ×3 (06:31→21:00)
[2020-06-09] MEDS: INSULIN LISPRO 100 UNITS/ML SUBCUT SCH ×4 (07:02→22:15)
[2020-06-09 08:00] VITALS: BP 125/85
[2020-06-09] MEDS: ASCORBIC ACID 500 MG TABLET PO SCH ×2 (09:25→21:33)
[2020-06-09] MEDS: ZINC SULFATE 220 MG ( 50 ) CAPSULE PO SCH (09:25)
[2020-06-09] MEDS: ENOXAPARIN 40MG/0.4ML SYR SUBCUT SCH (09:25)
[2020-06-09] MEDS: GUAIFENESIN 600MG ER TABLET PO SCH ×2 (09:25→21:33)
[2020-06-09] MEDS: FAMOTIDINE 20MG TABLET PO SCH ×2 (09:28→21:33)
[2020-06-09] MEDS: ASPIRIN 325MG EC TABLET PO SCH (09:39)
[2020-06-09 16:00] VITALS: BP 121/84
[2020-06-09 20:00] VITALS: BP 114/64
[2020-06-09] MEDS: ACETAMINOPHEN 325MG TABLET PO PRN (21:52)
[2020-06-10] VITALS: BP 119/65
[2020-06-10 04:00] VITALS: BP 111/76
[2020-06-10] MEDS: BLOOD SUGAR DIAGNOSTIC STRIP TEST SCH ×4 (06:31→21:02)
[2020-06-10] MEDS: INSULIN LISPRO 100 UNITS/ML SUBCUT SCH ×4 (06:38→21:02)
[2020-06-10 08:00] VITALS: BP 115/74
[2020-06-10] MEDS: ASPIRIN 325MG EC TABLET PO SCH (08:42)
[2020-06-10] MEDS: GUAIFENESIN 600MG ER TABLET PO SCH ×2 (08:43→21:01)
[2020-06-10] MEDS: ASCORBIC ACID 500 MG TABLET PO SCH ×2 (08:43→21:02)
[2020-06-10] MEDS: FAMOTIDINE 20MG TABLET PO SCH ×2 (08:43→21:02)
[2020-06-10] MEDS: ZINC SULFATE 220 MG ( 50 ) CAPSULE PO SCH (08:43)
[2020-06-10] MEDS: ENOXAPARIN 40MG/0.4ML SYR SUBCUT SCH (08:43)
[2020-06-10 12:00] VITALS: BP 104/71
[2020-06-10] MEDS: ACETAMINOPHEN 325MG TABLET PO PRN (13:05)
[2020-06-10 16:00] VITALS: BP 114/61
[2020-06-10 20:00] VITALS: BP 128/78
[2020-06-11] VITALS: BP 114/73
[2020-06-11 04:00] VITALS: BP 118/80
[2020-06-11] MEDS: INSULIN LISPRO 100 UNITS/ML SUBCUT SCH ×4 (07:10→21:48)
[2020-06-11] MEDS: BLOOD SUGAR DIAGNOSTIC STRIP TEST SCH ×4 (07:34→21:48)
[2020-06-11 08:00] VITALS: BP 114/75
[2020-06-11] MEDS: GUAIFENESIN 600MG ER TABLET PO SCH ×2 (09:02→21:47)
[2020-06-11] MEDS: ASCORBIC ACID 500 MG TABLET PO SCH ×2 (09:02→21:47)
[2020-06-11] MEDS: FAMOTIDINE 20MG TABLET PO SCH ×2 (09:02→21:47)
[2020-06-11] MEDS: ASPIRIN 325MG EC TABLET PO SCH (09:02)
[2020-06-11] MEDS: ZINC SULFATE 220 MG ( 50 ) CAPSULE PO SCH (09:02)
[2020-06-11 12:00] VITALS: BP 103/80
[2020-06-11] MEDS: ENOXAPARIN 40MG/0.4ML SYR SUBCUT SCH (13:13)
[2020-06-11 16:00] VITALS: BP 118/75
[2020-06-11 20:36] VITALS: BP 116/75
[2020-06-12 00:31] VITALS: BP 119/72
[2020-06-12 04:00] VITALS: BP 122/76
[2020-06-12] MEDS: BLOOD SUGAR DIAGNOSTIC STRIP TEST SCH ×4 (06:34→20:46)
[2020-06-12 08:00] VITALS: BP 119/83
[2020-06-12] MEDS: INSULIN LISPRO 100 UNITS/ML SUBCUT SCH ×4 (08:04→20:47)
[2020-06-12] MEDS: ENOXAPARIN 40MG/0.4ML SYR SUBCUT SCH (08:04)
[2020-06-12] MEDS: ASCORBIC ACID 500 MG TABLET PO SCH ×2 (08:05→20:40)
[2020-06-12] MEDS: GUAIFENESIN 600MG ER TABLET PO SCH ×2 (08:05→20:40)
[2020-06-12] MEDS: ASPIRIN 325MG EC TABLET PO SCH (08:05)
[2020-06-12] MEDS: FAMOTIDINE 20MG TABLET PO SCH ×2 (08:05→20:40)
[2020-06-12] MEDS: ZINC SULFATE 220 MG ( 50 ) CAPSULE PO SCH (08:05)
[2020-06-12 12:00] VITALS: BP 128/86
[2020-06-12 20:00] VITALS: BP 121/79
[2020-06-13] VITALS: BP 127/82
[2020-06-13 04:00] VITALS: BP 117/66
[2020-06-13] MEDS: BLOOD SUGAR DIAGNOSTIC STRIP TEST SCH ×4 (06:40→20:35)
[2020-06-13 08:00] VITALS: BP 110/75
[2020-06-13] MEDS: INSULIN LISPRO 100 UNITS/ML SUBCUT SCH ×4 (09:10→21:49)
[2020-06-13] MEDS: FAMOTIDINE 20MG TABLET PO SCH ×2 (09:12→21:47)
[2020-06-13] MEDS: ENOXAPARIN 40MG/0.4ML SYR SUBCUT SCH (09:12)
[2020-06-13] MEDS: GUAIFENESIN 600MG ER TABLET PO SCH ×2 (09:12→21:47)
[2020-06-13] MEDS: ASPIRIN 325MG EC TABLET PO SCH (09:12)
[2020-06-13] MEDS: ZINC SULFATE 220 MG ( 50 ) CAPSULE PO SCH (09:12)
[2020-06-13] MEDS: ASCORBIC ACID 500 MG TABLET PO SCH ×2 (09:13→21:47)
[2020-06-13 12:00] VITALS: BP 96/69
[2020-06-13 16:00] VITALS: BP 100/61
[2020-06-13 20:00] VITALS: BP 124/80
[2020-06-14] VITALS: BP 119/78
[2020-06-14 04:00] VITALS: BP 111/72
[2020-06-14] MEDS: BLOOD SUGAR DIAGNOSTIC STRIP TEST SCH ×4 (07:40→21:00)
[2020-06-14] MEDS: FAMOTIDINE 20MG TABLET PO SCH ×2 (08:42→21:51)
[2020-06-14] MEDS: ASCORBIC ACID 500 MG TABLET PO SCH ×2 (08:42→21:51)
[2020-06-14] MEDS: GUAIFENESIN 600MG ER TABLET PO SCH ×2 (08:42→21:51)
[2020-06-14] MEDS: ZINC SULFATE 220 MG ( 50 ) CAPSULE PO SCH (08:42)
[2020-06-14] MEDS: ASPIRIN 325MG EC TABLET PO SCH (08:42)
[2020-06-14] MEDS: ENOXAPARIN 40MG/0.4ML SYR SUBCUT SCH (08:44)
[2020-06-14] MEDS: INSULIN LISPRO 100 UNITS/ML SUBCUT SCH ×4 (08:46→21:52)
[2020-06-14 20:00] VITALS: BP 115/73
[2020-06-15] VITALS: BP 109/67
[2020-06-15 04:00] VITALS: BP 120/70
[2020-06-15 06:23] LABS: HEMATOCRIT. 38.6 % (42.0-52.0); HEMOGLOBIN. 13.1 g/dL (14.0-18.0); MEAN CORPUSCULAR HEMOGLOBIN 29.5 pg (28.0-32.0); MEAN CORPUSCULAR VOLUME 87.2 fL (80.0-94.0); MEAN PLATELET VOLUME 7.7 fl (7.4-10.4); PLATELET 359 x1000/uL (130-400); RED BLOOD CELL COUNT 4.42 mill/uL (4.7-6.1); RED CELL DISTRIBUTION WIDTH 14.5 % (11.6-14.6)
[2020-06-15] MEDS: BLOOD SUGAR DIAGNOSTIC STRIP TEST SCH ×4 (06:43→21:00)
[2020-06-15 08:00] VITALS: BP 111/55
[2020-06-15] MEDS: GUAIFENESIN 600MG ER TABLET PO SCH ×2 (08:20→22:01)
[2020-06-15] MEDS: ASCORBIC ACID 500 MG TABLET PO SCH ×2 (08:20→22:01)
[2020-06-15] MEDS: ZINC SULFATE 220 MG ( 50 ) CAPSULE PO SCH (08:20)
[2020-06-15] MEDS: FAMOTIDINE 20MG TABLET PO SCH ×2 (08:20→22:01)
[2020-06-15] MEDS: ENOXAPARIN 40MG/0.4ML SYR SUBCUT SCH (08:20)
[2020-06-15] MEDS: ASPIRIN 325MG EC TABLET PO SCH (08:20)
[2020-06-15] MEDS: INSULIN LISPRO 100 UNITS/ML SUBCUT SCH ×4 (08:22→21:00)
[2020-06-15 12:00] VITALS: BP 119/79
[2020-06-15 16:00] VITALS: BP 133/76
[2020-06-15 20:42] VITALS: BP 118/71
[2020-06-15 22:00] LABS: PLATELET ESTIMATE NORMAL
[2020-06-16 00:05] VITALS: BP 96/60
[2020-06-16 04:00] VITALS: BP 113/75
[2020-06-16] MEDS: BLOOD SUGAR DIAGNOSTIC STRIP TEST SCH ×4 (06:15→21:42)
[2020-06-16 08:00] VITALS: BP 127/81
[2020-06-16] MEDS: ACETAMINOPHEN 325MG TABLET PO PRN (08:06)
[2020-06-16] MEDS: ASCORBIC ACID 500 MG TABLET PO SCH ×2 (08:06→21:26)
[2020-06-16] MEDS: ENOXAPARIN 40MG/0.4ML SYR SUBCUT SCH (08:06)
[2020-06-16] MEDS: GUAIFENESIN 600MG ER TABLET PO SCH ×2 (08:06→21:26)
[2020-06-16] MEDS: ASPIRIN 325MG EC TABLET PO SCH (08:06)
[2020-06-16] MEDS: FAMOTIDINE 20MG TABLET PO SCH ×2 (08:06→21:26)
[2020-06-16] MEDS: ZINC SULFATE 220 MG ( 50 ) CAPSULE PO SCH (08:06)
[2020-06-16] MEDS: INSULIN LISPRO 100 UNITS/ML SUBCUT SCH ×4 (08:08→21:52)
[2020-06-16 12:00] VITALS: BP 113/80
[2020-06-16 16:00] VITALS: BP 112/79
[2020-06-16 20:00] VITALS: BP 93/53
[2020-06-17] VITALS: BP 90/55
[2020-06-17] MEDS: BLOOD SUGAR DIAGNOSTIC STRIP TEST SCH ×4 (07:39→21:41)
[2020-06-17 08:00] VITALS: BP 95/58
[2020-06-17] MEDS: ASPIRIN 325MG EC TABLET PO SCH (08:00)
[2020-06-17] MEDS: ASCORBIC ACID 500 MG TABLET PO SCH ×2 (08:00→21:38)
[2020-06-17] MEDS: GUAIFENESIN 600MG ER TABLET PO SCH ×2 (08:00→21:38)
[2020-06-17] MEDS: ZINC SULFATE 220 MG ( 50 ) CAPSULE PO SCH (08:00)
[2020-06-17] MEDS: ENOXAPARIN 40MG/0.4ML SYR SUBCUT SCH (08:00)
[2020-06-17] MEDS: FAMOTIDINE 20MG TABLET PO SCH ×2 (08:00→21:38)
[2020-06-17] MEDS: INSULIN LISPRO 100 UNITS/ML SUBCUT SCH ×4 (08:02→21:40)
[2020-06-17 12:00] VITALS: BP 102/65
[2020-06-17 16:00] VITALS: BP 98/57
[2020-06-17 20:00] VITALS: BP 96/53
[2020-06-18] VITALS (7 sets, daily range): BP systolic 99–124; BP diastolic 52–79
[2020-06-18] MEDS: ENOXAPARIN 40MG/0.4ML SYR SUBCUT SCH (10:11)
[2020-06-18] MEDS: FAMOTIDINE 20MG TABLET PO SCH ×2 (10:11→20:41)
[2020-06-18] MEDS: ASCORBIC ACID 500 MG TABLET PO SCH ×2 (10:12→20:41)
[2020-06-18] MEDS: ZINC SULFATE 220 MG ( 50 ) CAPSULE PO SCH (10:12)
[2020-06-18] MEDS: ASPIRIN 325MG EC TABLET PO SCH (10:12)
[2020-06-18] MEDS: GUAIFENESIN 600MG ER TABLET PO SCH ×2 (10:12→20:41)
[2020-06-18] MEDS: INSULIN LISPRO 100 UNITS/ML SUBCUT SCH ×4 (10:15→20:41)
[2020-06-18] MEDS: BLOOD SUGAR DIAGNOSTIC STRIP TEST SCH ×3 (13:24→20:41)
[2020-06-19 04:00] VITALS: BP 115/64
[2020-06-19] MEDS: FAMOTIDINE 20MG TABLET PO SCH ×2 (07:45→20:40)
[2020-06-19] MEDS: ASCORBIC ACID 500 MG TABLET PO SCH ×2 (07:45→20:40)
[2020-06-19] MEDS: BLOOD SUGAR DIAGNOSTIC STRIP TEST SCH ×4 (07:45→21:00)
[2020-06-19] MEDS: ZINC SULFATE 220 MG ( 50 ) CAPSULE PO SCH (07:46)
[2020-06-19] MEDS: ASPIRIN 325MG EC TABLET PO SCH (07:46)
[2020-06-19] MEDS: GUAIFENESIN 600MG ER TABLET PO SCH ×2 (07:46→20:40)
[2020-06-19] MEDS: INSULIN LISPRO 100 UNITS/ML SUBCUT SCH ×4 (07:48→20:41)
[2020-06-19 08:00] VITALS: BP 103/55
[2020-06-19] MEDS ORDERED: FUROSEMIDE 20MG TABLET PO SCH (09:00)
[2020-06-19] MEDS: ENOXAPARIN 40MG/0.4ML SYR SUBCUT SCH (10:24)
[2020-06-19 12:00] VITALS: BP 105/69
[2020-06-19 20:00] VITALS: BP 127/71
[2020-06-20] VITALS: BP 119/81
[2020-06-20] MEDS: BLOOD SUGAR DIAGNOSTIC STRIP TEST SCH ×4 (05:47→20:06)
[2020-06-20 07:47] VITALS: BP 140/84
[2020-06-20] MEDS: ASPIRIN 325MG EC TABLET PO SCH (08:13)
[2020-06-20] MEDS: FAMOTIDINE 20MG TABLET PO SCH ×2 (08:13→20:13)
[2020-06-20] MEDS: ASCORBIC ACID 500 MG TABLET PO SCH ×2 (08:13→20:13)
[2020-06-20] MEDS: ENOXAPARIN 40MG/0.4ML SYR SUBCUT SCH (08:13)
[2020-06-20] MEDS: GUAIFENESIN 600MG ER TABLET PO SCH ×2 (08:13→20:12)
[2020-06-20] MEDS: ZINC SULFATE 220 MG ( 50 ) CAPSULE PO SCH (08:13)
[2020-06-20] MEDS: INSULIN LISPRO 100 UNITS/ML SUBCUT SCH ×4 (08:14→20:13)
[2020-06-20 12:01] VITALS: BP 136/78
[2020-06-20 16:00] VITALS: BP 138/85
[2020-06-20 20:07] VITALS: BP 100/65
[2020-06-21 08:00] VITALS: BP 115/64
[2020-06-21] MEDS: INSULIN LISPRO 100 UNITS/ML SUBCUT SCH ×4 (08:10→22:15)
[2020-06-21] MEDS: ASCORBIC ACID 500 MG TABLET PO SCH ×2 (09:25→22:14)
[2020-06-21] MEDS: ZINC SULFATE 220 MG ( 50 ) CAPSULE PO SCH (09:25)
[2020-06-21] MEDS: GUAIFENESIN 600MG ER TABLET PO SCH ×2 (09:25→22:14)
[2020-06-21] MEDS: ENOXAPARIN 40MG/0.4ML SYR SUBCUT SCH (09:25)
[2020-06-21] MEDS: FAMOTIDINE 20MG TABLET PO SCH ×2 (09:25→22:14)
[2020-06-21] MEDS: ASPIRIN 325MG EC TABLET PO SCH (09:25)
[2020-06-21] MEDS: BLOOD SUGAR DIAGNOSTIC STRIP TEST SCH ×3 (11:57→21:00)
[2020-06-21 12:00] VITALS: BP 133/85
[2020-06-21 16:00] VITALS: BP 136/81
[2020-06-21 20:31] VITALS: BP 126/75
[2020-06-21 23:43] VITALS: BP 140/77
[2020-06-22 04:00] VITALS: BP 124/79
[2020-06-22] MEDS: BLOOD SUGAR DIAGNOSTIC STRIP TEST SCH ×4 (05:28→21:48)
[2020-06-22 06:42] LABS: CHLORIDE 100 mEq/L (98-107)
[2020-06-22 06:47] LABS: HEMATOCRIT. 38.6 % (42.0-52.0); HEMOGLOBIN. 12.7 g/dL (14.0-18.0); MEAN CORPUSCULAR HEMOGLOBIN 28.7 pg (28.0-32.0); MEAN PLATELET VOLUME 7.4 fl (7.4-10.4); PLATELET 469 x1000/uL (130-400); RED BLOOD CELL COUNT 4.44 mill/uL (4.7-6.1); RED CELL DISTRIBUTION WIDTH 14.7 % (11.6-14.6)
[2020-06-22] MEDS: ZINC SULFATE 220 MG ( 50 ) CAPSULE PO SCH (09:13)
[2020-06-22] MEDS: ASCORBIC ACID 500 MG TABLET PO SCH ×2 (09:14→21:48)
[2020-06-22] MEDS: FAMOTIDINE 20MG TABLET PO SCH ×2 (09:14→21:48)
[2020-06-22] MEDS: GUAIFENESIN 600MG ER TABLET PO SCH ×2 (09:14→21:48)
[2020-06-22] MEDS: ASPIRIN 325MG EC TABLET PO SCH (09:14)
[2020-06-22] MEDS: ENOXAPARIN 40MG/0.4ML SYR SUBCUT SCH (09:15)
[2020-06-22] MEDS: INSULIN LISPRO 100 UNITS/ML SUBCUT SCH ×4 (09:17→21:00)
[2020-06-22 12:00] VITALS: BP 112/71
[2020-06-22 16:00] VITALS: BP 114/68
[2020-06-22 20:29] VITALS: BP 128/77
[2020-06-22 21:35] LABS: PLATELET ESTIMATE NORMAL
[2020-06-23] MEDS: BLOOD SUGAR DIAGNOSTIC STRIP TEST SCH ×4 (06:41→20:54)
[2020-06-23 08:00] VITALS: BP 146/87
[2020-06-23] MEDS: INSULIN LISPRO 100 UNITS/ML SUBCUT SCH ×4 (08:10→21:13)
[2020-06-23] MEDS: ZINC SULFATE 220 MG ( 50 ) CAPSULE PO SCH (09:12)
[2020-06-23] MEDS: ASPIRIN 325MG EC TABLET PO SCH (09:12)
[2020-06-23] MEDS: ASCORBIC ACID 500 MG TABLET PO SCH ×2 (09:12→21:12)
[2020-06-23] MEDS: FAMOTIDINE 20MG TABLET PO SCH ×2 (09:12→21:12)
[2020-06-23] MEDS: GUAIFENESIN 600MG ER TABLET PO SCH ×2 (09:12→21:12)
[2020-06-23] MEDS: ENOXAPARIN 40MG/0.4ML SYR SUBCUT SCH (09:13)
[2020-06-23 12:00] VITALS: BP 132/77
[2020-06-23 16:00] VITALS: BP 129/64
[2020-06-23 20:00] VITALS: BP 126/76
[2020-06-24] VITALS: BP 118/80
[2020-06-24 04:00] VITALS: BP 118/75
[2020-06-24] MEDS: BLOOD SUGAR DIAGNOSTIC STRIP TEST SCH ×4 (06:54→20:46)
[2020-06-24 08:00] VITALS: BP 122/77
[2020-06-24] MEDS: ENOXAPARIN 40MG/0.4ML SYR SUBCUT SCH (08:56)
[2020-06-24] MEDS: ASPIRIN 325MG EC TABLET PO SCH (08:57)
[2020-06-24] MEDS: ASCORBIC ACID 500 MG TABLET PO SCH ×2 (08:57→20:32)
[2020-06-24] MEDS: FAMOTIDINE 20MG TABLET PO SCH ×2 (08:57→20:32)
[2020-06-24] MEDS: GUAIFENESIN 600MG ER TABLET PO SCH ×2 (08:57→20:32)
[2020-06-24] MEDS: ZINC SULFATE 220 MG ( 50 ) CAPSULE PO SCH (09:08)
[2020-06-24] MEDS: INSULIN LISPRO 100 UNITS/ML SUBCUT SCH ×4 (09:10→20:45)
[2020-06-24 12:00] VITALS: BP 115/80
[2020-06-24 16:00] VITALS: BP 115/74
[2020-06-24 20:00] VITALS: BP 117/64
[2020-06-25] VITALS: BP 98/62
[2020-06-25 04:00] VITALS: BP 121/78
[2020-06-25] MEDS: BLOOD SUGAR DIAGNOSTIC STRIP TEST SCH ×4 (07:40→21:32)
[2020-06-25 08:00] VITALS: BP 113/69
[2020-06-25] MEDS: INSULIN LISPRO 100 UNITS/ML SUBCUT SCH ×4 (08:22→21:00)
[2020-06-25] MEDS: GUAIFENESIN 600MG ER TABLET PO SCH ×2 (08:22→21:32)
[2020-06-25] MEDS: ASCORBIC ACID 500 MG TABLET PO SCH ×2 (08:22→21:32)
[2020-06-25] MEDS: FAMOTIDINE 20MG TABLET PO SCH ×2 (08:22→21:32)
[2020-06-25] MEDS: ASPIRIN 325MG EC TABLET PO SCH (08:22)
[2020-06-25] MEDS: ENOXAPARIN 40MG/0.4ML SYR SUBCUT SCH (08:22)
[2020-06-25] MEDS: ZINC SULFATE 220 MG ( 50 ) CAPSULE PO SCH (08:22)
[2020-06-25 12:00] VITALS: BP 125/74
[2020-06-25 16:00] VITALS: BP 115/69
[2020-06-25 20:00] VITALS: BP 120/75
[2020-06-25] MEDS: ACETAMINOPHEN 325MG TABLET PO PRN (22:54)
[2020-06-26] VITALS: BP 108/66
[2020-06-26 04:00] VITALS: BP 116/77
[2020-06-26] MEDS: BLOOD SUGAR DIAGNOSTIC STRIP TEST SCH ×4 (07:40→20:52)
[2020-06-26 08:00] VITALS: BP 115/72
[2020-06-26] MEDS: GUAIFENESIN 600MG ER TABLET PO SCH ×2 (08:24→20:51)
[2020-06-26] MEDS: INSULIN LISPRO 100 UNITS/ML SUBCUT SCH ×4 (08:24→20:51)
[2020-06-26] MEDS: ASCORBIC ACID 500 MG TABLET PO SCH ×2 (08:25→20:51)
[2020-06-26] MEDS: ACETAMINOPHEN 325MG TABLET PO PRN (08:25)
[2020-06-26] MEDS: FAMOTIDINE 20MG TABLET PO SCH ×2 (08:25→20:51)
[2020-06-26] MEDS: ASPIRIN 325MG EC TABLET PO SCH (08:25)
[2020-06-26] MEDS: ENOXAPARIN 40MG/0.4ML SYR SUBCUT SCH (08:26)
[2020-06-26] MEDS: ZINC SULFATE 220 MG ( 50 ) CAPSULE PO SCH (08:26)
[2020-06-26 12:00] VITALS: BP 119/76
[2020-06-26 16:00] VITALS: BP 115/73
[2020-06-26 20:00] VITALS: BP 125/83
[2020-06-27] VITALS: BP 126/78
[2020-06-27 04:00] VITALS: BP 118/80
[2020-06-27] MEDS: BLOOD SUGAR DIAGNOSTIC STRIP TEST SCH ×5 (07:40→22:01)
[2020-06-27 08:00] VITALS: BP 117/72
[2020-06-27] MEDS: ZINC SULFATE 220 MG ( 50 ) CAPSULE PO SCH (09:06)
[2020-06-27] MEDS: FAMOTIDINE 20MG TABLET PO SCH ×2 (09:06→22:02)
[2020-06-27] MEDS: ASCORBIC ACID 500 MG TABLET PO SCH ×2 (09:06→22:02)
[2020-06-27] MEDS: GUAIFENESIN 600MG ER TABLET PO SCH ×2 (09:06→22:02)
[2020-06-27] MEDS: ENOXAPARIN 40MG/0.4ML SYR SUBCUT SCH (09:07)
[2020-06-27] MEDS: ASPIRIN 325MG EC TABLET PO SCH (09:20)
[2020-06-27] MEDS: INSULIN LISPRO 100 UNITS/ML SUBCUT SCH ×4 (09:23→22:08)
[2020-06-27 12:00] VITALS: BP 116/69
[2020-06-27 16:00] VITALS: BP 112/63
[2020-06-27 20:00] VITALS: BP 116/75
[2020-06-28] VITALS: BP 125/76
[2020-06-28 04:00] VITALS: BP 108/69
[2020-06-28 08:00] VITALS: BP 104/78
[2020-06-28] MEDS: ZINC SULFATE 220 MG ( 50 ) CAPSULE PO SCH (08:48)
[2020-06-28] MEDS: ASCORBIC ACID 500 MG TABLET PO SCH ×2 (08:48→21:22)
[2020-06-28] MEDS: ASPIRIN 325MG EC TABLET PO SCH (08:48)
[2020-06-28] MEDS: FAMOTIDINE 20MG TABLET PO SCH ×2 (08:48→21:22)
[2020-06-28] MEDS: ENOXAPARIN 40MG/0.4ML SYR SUBCUT SCH (08:49)
[2020-06-28] MEDS: INSULIN LISPRO 100 UNITS/ML SUBCUT SCH ×4 (08:50→21:33)
[2020-06-28] MEDS: GUAIFENESIN 600MG ER TABLET PO SCH ×2 (08:56→21:22)
[2020-06-28 12:00] VITALS: BP 122/75
[2020-06-28] MEDS: BLOOD SUGAR DIAGNOSTIC STRIP TEST SCH ×3 (12:39→21:21)
[2020-06-28 16:00] VITALS: BP 122/75
[2020-06-28 20:00] VITALS: BP_SYST 128; BP_SYST 140; BP_DIAS 64; BP_DIAS 74
[2020-06-29] VITALS: BP 128/89
[2020-06-29] MEDS ORDERED: MORPHINE SULFATE 2 MG/ML CPJ (NOT FOR IM USE) IV ONE (01:30)
[2020-06-29 04:00] VITALS: BP 130/78
[2020-06-29] MEDS: BLOOD SUGAR DIAGNOSTIC STRIP TEST SCH ×4 (07:11→20:23)
[2020-06-29 08:00] VITALS: BP 124/82
[2020-06-29] MEDS: ASPIRIN 325MG EC TABLET PO SCH (09:00)
[2020-06-29] MEDS: ENOXAPARIN 40MG/0.4ML SYR SUBCUT SCH (10:09)
[2020-06-29] MEDS: ASCORBIC ACID 500 MG TABLET PO SCH ×2 (10:09→20:23)
[2020-06-29] MEDS: GUAIFENESIN 600MG ER TABLET PO SCH ×2 (10:09→20:32)
[2020-06-29] MEDS: ZINC SULFATE 220 MG ( 50 ) CAPSULE PO SCH (10:09)
[2020-06-29] MEDS: FAMOTIDINE 20MG TABLET PO SCH ×2 (10:09→20:23)
[2020-06-29] MEDS: INSULIN LISPRO 100 UNITS/ML SUBCUT SCH ×4 (10:16→20:32)
[2020-06-29 12:00] VITALS: BP 117/77
[2020-06-29 13:10] LABS: BG BASE EXCESS 6.9 mmol/L (-2.0-2.0); BG CARBOXYHEMOGLOBIN 1.3 % (0.5-1.5); BG FRACTION INSPIRED OXYGEN 21; BG HCO3 ACT 32.7 mmol/L (22.0-26.0); BG METHEMOGLOBIN 0.1 % (0.0-1.5); BG OXYGEN SATURATION 70.6 % (92.0-98.5); BG OXYHEMOGLOBIN 69.6 % (94.0-97.0); BG PCO2 51.4 mmHg (35.0-45.0); BG PH 7.422 (7.350-7.450); BG PO2 36.3 mmHg (75.0-100.0); BG SAMPLE SITE LEFT RADIAL; BG TOTAL HEMOGLOBIN 14.2 g/dL (12.0-18.0); BG VENT MODE ROOM AIR
[2020-06-29] MEDS: LACTULOSE 20G/30ML UDC PO PRN (16:53)
[2020-06-29] MEDS ORDERED: IPRATROPIUM/ALBUTEROL 0.5-3(2.5)MG/3ML NEB HHN PRN (17:15)
[2020-06-29 20:00] VITALS: BP 112/76
[2020-06-30] VITALS: BP 138/87
[2020-06-30] MEDS: IPRATROPIUM/ALBUTEROL 0.5-3(2.5)MG/3ML NEB HHN SCH ×6 (01:44→20:25)
[2020-06-30 04:00] VITALS: BP 131/81
[2020-06-30] MEDS: BLOOD SUGAR DIAGNOSTIC STRIP TEST SCH ×3 (05:46→21:00)
[2020-06-30] MEDS: LACTULOSE 20G/30ML UDC PO PRN (05:51)
[2020-06-30 08:00] VITALS: BP 112/73
[2020-06-30] MEDS: GUAIFENESIN 600MG ER TABLET PO SCH ×2 (09:53→22:32)
[2020-06-30] MEDS: FAMOTIDINE 20MG TABLET PO SCH ×2 (09:53→22:32)
[2020-06-30] MEDS: ZINC SULFATE 220 MG ( 50 ) CAPSULE PO SCH (09:53)
[2020-06-30] MEDS: ASPIRIN 325MG EC TABLET PO SCH (09:53)
[2020-06-30] MEDS: ASCORBIC ACID 500 MG TABLET PO SCH ×2 (09:53→22:32)
[2020-06-30] MEDS: ENOXAPARIN 40MG/0.4ML SYR SUBCUT SCH (09:53)
[2020-06-30] MEDS: INSULIN LISPRO 100 UNITS/ML SUBCUT SCH ×4 (10:08→22:39)
[2020-06-30 12:00] VITALS: BP 123/78
[2020-06-30 16:00] VITALS: BP 125/77
[2020-06-30] MEDS ORDERED: ACETAMINOPHEN 325MG TABLET PO PRN (18:00)
[2020-06-30] MEDS ORDERED: DEXTROSE 50% WATER 50ML SYRINGE IV PRN (18:00)
[2020-06-30 20:00] VITALS: BP 129/77
[2020-06-30] MEDS ORDERED: CLONIDINE 0.1MG TABLET PO PRN (20:00)
[2020-06-30] MEDS ORDERED: INSULIN LISPRO 100 UNITS/ML SUBCUT SCH (21:00)
[2020-07-01] VITALS: BP 126/76
[2020-07-01 04:00] VITALS: BP 127/77
[2020-07-01] MEDS: IPRATROPIUM/ALBUTEROL 0.5-3(2.5)MG/3ML NEB HHN SCH ×4 (04:13→20:04)
[2020-07-01] MEDS: BLOOD SUGAR DIAGNOSTIC STRIP TEST SCH ×4 (06:54→21:00)
[2020-07-01 08:00] VITALS: BP 129/83
[2020-07-01] MEDS: ASPIRIN 325MG EC TABLET PO SCH (08:58)
[2020-07-01] MEDS: ZINC SULFATE 220 MG ( 50 ) CAPSULE PO SCH (08:58)
[2020-07-01] MEDS: ENOXAPARIN 40MG/0.4ML SYR SUBCUT SCH (08:58)
[2020-07-01] MEDS: INSULIN LISPRO 100 UNITS/ML SUBCUT SCH ×4 (09:07→22:18)
[2020-07-01 12:00] VITALS: BP 120/79
[2020-07-01 16:00] VITALS: BP 134/84
[2020-07-01 20:00] VITALS: BP 122/84
[2020-07-01] MEDS: ASCORBIC ACID 500 MG TABLET PO SCH (21:59)
[2020-07-01] MEDS: FAMOTIDINE 20MG TABLET PO SCH (21:59)
[2020-07-01] MEDS: GUAIFENESIN 600MG ER TABLET PO SCH (21:59)
[2020-07-02] VITALS: BP 127/82
[2020-07-02] MEDS: IPRATROPIUM/ALBUTEROL 0.5-3(2.5)MG/3ML NEB HHN SCH ×3 (00:48→08:25)
[2020-07-02 04:00] VITALS: BP 140/90
[2020-07-02] MEDS: BLOOD SUGAR DIAGNOSTIC STRIP TEST SCH (06:30)
[2020-07-02 08:00] VITALS: BP 120/79
[2020-07-02] MEDS: GUAIFENESIN 600MG ER TABLET PO SCH (08:41)
[2020-07-02] MEDS: ASCORBIC ACID 500 MG TABLET PO SCH (08:41)
[2020-07-02] MEDS: ENOXAPARIN 40MG/0.4ML SYR SUBCUT SCH (08:42)
[2020-07-02] MEDS: FAMOTIDINE 20MG TABLET PO SCH (08:42)
[2020-07-02] MEDS: INSULIN LISPRO 100 UNITS/ML SUBCUT SCH (08:46)
[2020-07-02 09:43] VITALS: BP 120/79
[2020-07-02] MEDS ORDERED: GLIPIZIDE 5MG TABLET PO SCH (10:00)
== END 2020-07-02 11:25 | disposition home or self-care (01) | DRG 720 ==
LOC: ER 05:14 → 8WST 08:47 → UNDOADMIN 12:37 → 8WST 12:37 → UNDOADMIN 05-05 08:47 → 8WST 05-05 08:47 → ENRESERV 05-05 11:25 → 8WST 06-01 15:26 → 7EST 06-01 15:26 → 7WST 06-13 10:43 → 7EST 06-13 10:43 → 6EST 06-28 20:16 → 7WST 06-28 20:16 → UNDODISIN 07-02 11:25
PROVIDERS: ADMIT Internal Medicine; ATTEND Internal Medicine
DX: A41.89 Other specified sepsis (principal); U07.1 COVID-19; J96.01 Acute respiratory failure with hypoxia; R65.20 Severe sepsis without septic shock; E44.0 Moderate protein-calorie malnutrition; J12.82 Pneumonia due to coronavirus disease 2019; Z68.25 Body mass index [BMI] 25.0-25.9, adult; E11.65 Type 2 diabetes mellitus with hyperglycemia; E87.1 Hypo-osmolality and hyponatremia; I10 Essential (primary) hypertension; Z79.899 Other long term (current) drug therapy; Z79.82 Long term (current) use of aspirin
CPT/HCPCS: 36415; 36600; 71045; 80048; 80053; 80061; 82375; 82550; 82553; 82607; 82746; 82805; 82962; 83036; 83540; 83550; 83605; 83735; 83880; 84100; 84145; 84484; 85025; 85027; 87426; 93005; 93970; 94640; 99291; C9803; J0456; J0696; J1100; J1650; J1815; J7040; J7060; U0003